=== PATIENT | female | born 1985 | race Caucasian/White ===

== ENCOUNTER 2017-04-19 15:42 | Emergency (ER) | payer OTHER ==
[2017-04-19 16:03] VITALS: BMI 30.1
--- NOTE | 2017-04-19 17:43 | PDOC ---
History of Present Illness - General History Source: Patient Exam Limitations: No Limitations - History of Present Illness Initial Comments: 04/19/17 18:02 32 y/o F (16 weeks) with a PMHx of hypothyroidism presents to the ED with facial swelling and abdominal pain for the past week. She reports difficulty eating due to the pain. She reports taking Tylenol and icing her face with no relief. Patient was traveling in [place] and noticed facial swelling. She went to the ER there and they gave her Keflex and it seemed to resolve a little. However, when she came back home she noticed facial swelling again, along with crampy abdominal pain so she spoke to her dentist and her OB/ Brim Greaser Operator. briquette maker: Dr. Copeland <Blaire Crain - Last Filed: 04/19/17 18:02> <Nichol Vigil - Last Filed: 04/19/17 20:43> <Elidia Beach - Last Filed: 04/19/17 20:53> - General Chief Complaint: Abscess Boil Stated Complaint: ABSCESS BOIL, 16 WKS Time Seen by Provider: 04/19/17 17:24 Past History <Blaire Crain - Last Filed: 04/19/17 18:02> <Nichol Vigil - Last Filed: 04/19/17 20:43> - Past Medical History Anemia: Yes Asthma: Yes (shortness of breath seasonally) Cancer: No Cardiac Disorders: No Diabetes: No HTN: No Liver Disease: No Seizures: Yes (epilepsy as a child) Thyroid Disease: Yes (hypothyroidism) - Surgical History Abdominal Surgery: Yes (LAP) Appendectomy: Yes Cardiac Surgery: Yes - Immunization History Immunization Up to Date: Yes - Suicide/Smoking/Psychosocial Hx Smoking Status: Yes Smoking History: Current every day smoker Have you smoked in the past 12 months: No Number of Cigarettes Smoked Daily: 7 If you are a former smoker, when did you quit?: 2013 Information on smoking cessation initiated: No Hx Alcohol Use: No Drug/Substance Use Hx: No Substance Use Type: None Hx Substance Use Treatment: No <Elidia Beach - Last Filed: 04/19/17 20:53> - Past Medical History Allergies/Adverse Reactions: Allergies Allergy/AdvReac Type Severity Reaction Status Date / Time No Known Allergies Allergy Verified 04/19/17 15:58 Home Medications: Ambulatory Orders Cholecalciferol (Vitamin D3) [Vitamin D3] 2,000 unit PO DAILY 12/26/15 Levothyroxine [Synthroid -] 275 mcg PO DAILY 01/19/16 Oxycodone HCl/Acetaminophen [Endocet 5-325 Tablet] 1 - 2 each PO BID PRN #100 tablet MDD 4 08/13/16 Pregabalin [Lyrica -] 150 mg PO BID #60 capsule MDD 2 08/13/16 Acetaminophen W/ Codeine #3 [Tylenol # 3 -] 1 tab PO Q6H #6 tablet MDD 4 tabs per day 04/19/17 Clindamycin [Cleocin -] 450 mg PO Q8H #90 capsule 04/19/17 Clotrimazole [Clotrimazole-7] 45 gm VG DAILY #7 cream.appl 04/19/17 Review of Systems - Review of Systems Comments:: 04/19/17 18:18 GENERAL/CONSTITUTIONAL: No fever or chills. No weakness. HEAD, EYES, EARS, NOSE AND THROAT: (+) facial swelling. No change in vision. No ear pain or discharge. No sore throat. CARDIOVASCULAR: No chest pain or shortness of breath. RESPIRATORY: No cough, wheezing, or hemoptysis. GASTROINTESTINAL: (+) abdominal pain. No nausea, vomiting, diarrhea or constipation. GENITOURINARY: No dysuria, frequency, or change in urination. MUSCULOSKELETAL: No joint or muscle swelling or pain. No neck or back pain. SKIN: No rash NEUROLOGIC: No headache, vertigo, loss of consciousness, or change in strength/ sensation. ENDOCRINE: No increased thirst. No abnormal weight change. HEMATOLOGIC/LYMPHATIC: No anemia, easy bleeding, or history of blood clots. ALLERGIC/IMMUNOLOGIC: No hives or skin allergy. <Blaire Crain - Last Filed: 04/19/17 18:02> *Physical Exam - Vital Signs Last Vital Signs Temp Pulse Resp BP Pulse Ox 98.4 F 101 H 16 122/80 96 04/19/17 15:58 04/19/17 15:58 04/19/17 15:58 04/19/17 15:58 04/19/17 15:58 <Blaire Crain - Last Filed: 04/19/17 18:02> - Vital Signs Last Vital Signs Temp Pulse Resp BP Pulse Ox 98.4 F 101 H 16 122/80 96 04/19/17 15:58 04/19/17 15:58 04/19/17 15:58 04/19/17 15:58 04/19/17 15:58 - Physical Exam Comments: 04/19/17 20:43 Pelvic Exam: +cheesy white discharge present. External genitalia normal without lesions. Vaginal vault is without blood . Cervix is long and closed. No cervical motion tenderness. Uterus is nontender and normal in size. Adnexa are nontender and without masses. <Nichol Vigil - Last Filed: 04/19/17 20:43> - Vital Signs Last Vital Signs Temp Pulse Resp BP Pulse Ox 98.4 F 101 H 16 122/80 96 04/19/17 15:58 04/19/17 15:58 04/19/17 15:58 04/19/17 15:58 04/19/17 15:58 <Elidia Beach - Last Filed: 04/19/17 20:53> ED Treatment Course - LABORATORY CBC & Chemistry Diagram: 04/19/17 19:25 04/19/17 19:25 - ADDITIONAL ORDERS Additional order review: Laboratory Results 04/19/17 04/19/17 19:25 19:25 Beta HCG, Quant [id number] Urine Color Yellow Urine Appearance Slcloudy Urine pH 5.0 Urine Protein Negative Urine Glucose (UA) Negative Urine Ketones Trace H Urine Blood Negative Urine Nitrite Negative Urine Bilirubin Negative Urine Urobilinogen Negative 04/19/17 19:25 RBC 4.45 MCV 91.4 MCHC 33.8 RDW 13.8 MPV 10.8 Neutrophils % 79.2 Lymphocytes % 15.1 D Monocytes % 3.9 Eosinophils % 1.3 D Basophils % 0.5 - Medications Given in the ED: ED Medications Discontinued Medications Generic Name Dose Route Start Last Admin Trade Name Freq PRN Reason Stop Dose Admin Acetaminophen 975 mg 04/19/17 17:44 04/19/17 19:27 Tylenol - PO 04/19/17 17:45 975 mg ONCE ONE Administration Sodium Chloride 1,000 ml 04/19/17 17:44 04/19/17 19:27 Normal Saline - IV 04/19/17 17:45 1,000 ml ONCE ONE Administration <Nichol Vigil - Last Filed: 04/19/17 20:43> - LABORATORY CBC & Chemistry Diagram: 04/19/17 19:25 04/19/17 19:25 <Elidia Beach - Last Filed: 04/19/17 20:53> Medical Decision Making - Medical Decision Making 04/19/17 19:29 32yo female with L lower jaw swelling and pelvic cramping -16 weeks , c/o vaginal discharge, no bleeding -will check labs, ivf hydration, pain control -will discuss with ENGINE TEST CELL TECHNICIAN - call placed to [facility] -pt with concern for tooth abscess, will give clindamycin -case discussed with Dr. Lopez - [facility] - who recommends pt come to walk in clinic tomorrow at 1pm at [facility] for further eval [phone] 04/19/17 19:[address] Steve who recommends tylenol #3 for pain <Elidia Beach - Last Filed: 04/19/17 20:53> *DC/Admit/Observation/Transfer - Attestations Scribe Attestion: 04/19/17 18:19 Documentation prepared by Blaire Crain, acting as medical dermatologist for Elidia Beach DO. <Blaire Crain - Last Filed: 04/19/17 18:02> - Attestations Scribe Attestion: 04/19/17 20:44 Documentation prepared by SUSIE Love, acting as medical dermatologist for Elidia Beach DO. <Nichol Vigil - Last Filed: 04/19/17 20:43> - Discharge Dispostion Admit: No - Attestations Physician Attestion: 04/19/17 20:53 I, Dr. Elidia Beach DO, attest that this document has been prepared under my direction and personally reviewed by me in its entirety. I further attest, that it accurately reflects all work, treatment, procedures and medical decision -making performed by me. <Elidia Beach - Last Filed: 04/19/17 20:53> Diagnosis at time of Disposition: Fracture of tooth, Dental abscess, Pelvic cramping, Vaginal candidiasis - Discharge Dispostion Disposition: HOME Condition at time of disposition: Stable - Prescriptions Prescriptions: Clindamycin [Cleocin -] 450 mg PO Q8H #90 capsule Clotrimazole [Clotrimazole-7] 45 gm VG DAILY #7 cream.appl Acetaminophen W/ Codeine #3 [Tylenol # 3 -] 1 tab PO Q6H #6 tablet MDD 4 tabs per day - Referrals Referrals: Marlene Martin MD [Primary Care Provider] - Aldair Copeland MD [Staff Physician] - - Patient Instructions Printed Discharge Instructions: DI for Tooth Abscess Additional Instructions: Please go to [facility] tomorrow at 1pm for the walk in clinic for the tooth infection. The phone number is [phone]. Please take all meds as prescribed. Please return to the ED with any further concerns.
[2017-04-19] MEDS ORDERED: SODIUM CHLORIDE 0.9% 1000 ML INFUS.BAG IV ONE (17:44)
[2017-04-19] MEDS ORDERED: ACETAMINOPHEN 325 MG TABLET (FP) PO ONE (17:44)
[2017-04-19] MEDS ORDERED: ACETAMINOPHEN 325 MG TABLET (FP) ONE (19:04)
[2017-04-19] MEDS ORDERED: ACETAMINOPHEN WITH CODEINE 300MG/30MG TABLET PO ONE (19:35)
[2017-04-19 19:46] LABS: BASOPHIL 0.5 % (0-2.0); EOSINOPHIL 1.3 % (0-4.5); MCH 30.9 pg (25.7-33.7); MCHC 33.8 g/dl (32.0-36.0); MEAN CELL VOLUME 91.4 fl (80-96); MEAN PLT VOLUME 10.8 fl (7.5-11.1); NEUTROPHILS 79.2 % (42.8-82.8); PLATELET COUNT 195 K/MM3 (134-434); RDW 13.8 % (11.6-15.6); WHITE BLOOD COUNT 15.6 K/mm3 (4.0-10.0)
[2017-04-19] MEDS ORDERED: ACETAMINOPHEN WITH CODEINE 300MG/30MG TABLET ONE (19:48)
[2017-04-19 20:06] LABS: URINE APPEARANCE SLCLOUDY; URINE BILIRUBIN NEGATIVE (NEGATIVE); URINE BLOOD NEGATIVE (NEGATIVE); URINE COLOR YELLOW; URINE GLUCOSE (UA) NEGATIVE (NEGATIVE); URINE KETONE TRACE (NEGATIVE); URINE LEUK ESTERASE NEGATIVE (NEGATIVE); URINE NITRITE NEGATIVE (NEGATIVE); URINE PROTEIN NEGATIVE (NEGATIVE); URINE UROBILINOGEN NEGATIVE mg/dL (0.2-1.0)
[2017-04-19 20:11] LABS: ALBUMIN 3.1 g/dl (3.4-5.0); ALK PHOS 106 U/L (45-117); ANION GAP 5 (8-16); BILIRUBIN,TOTAL 0.3 mg/dL (0.2-1.0); CALCIUM 8.9 mg/dL (8.5-10.1); CO2 26 mmol/L (21-32); CREATININE 0.4 mg/dL (0.55-1.02); GLUCOSE,RANDOM 70 mg/dL (74-106); SGOT/AST 12 U/L (15-37); SGPT/ALT 30 U/L (12-78); TOT PROT 7.1 g/dl (6.4-8.2)
[2017-04-19] MEDS ORDERED: CLINDAMYCIN HCL 150 MG CAPSULE (FP) PO ONE (20:31)
[2017-04-19 21:07] VITALS: BP 128/80; PULSE 75; TEMP 98
== END 2017-04-19 21:19 | disposition home or self-care (01) ==
LOC: JER 15:42
DX: O26.891 Other specified pregnancy related conditions, first trimester (principal); O98.812 Other maternal infectious and parasitic diseases complicating pregnancy, second trimester; B37.3 Candidiasis of vulva and vagina; K04.7 Periapical abscess without sinus; Z3A.16 16 weeks gestation of pregnancy; F17.210 Nicotine dependence, cigarettes, uncomplicated
CPT/HCPCS: 36415; 76815-TC; 80053; 81003; 84702; 85025; 99284-25

== ENCOUNTER 2017-05-03 15:24 | Emergency (ER) | payer OTHER ==
[2017-05-03 15:31] VITALS: TEMP 98.2; BMI 30.1
[2017-05-03 17:52] VITALS: BP 114/64; PULSE 71
== END 2017-05-03 16:00 | disposition home or self-care (01) ==
LOC: JER 15:24
DX: O26.892 Other specified pregnancy related conditions, second trimester (principal); Z3A.20 20 weeks gestation of pregnancy
CPT/HCPCS: 76815-TC; 99281-25

== ENCOUNTER 2017-06-28 14:55 | Emergency (ER) | payer OTHER ==
[2017-06-28 15:05] VITALS: TEMP 98.8; BMI 31.8
--- NOTE | 2017-06-28 15:05 | PDOC ---
Rapid Medical Evaluation Chief Complaint: Cold Symptoms Time Seen by Provider: 06/28/17 15:00 Medical Evaluation: Allergies Allergy/AdvReac Type Severity Reaction Status Date / Time No Known Allergies Allergy Verified 06/28/17 15:00 06/28/17 15:02 I have performed a brief in-person evaluation of this patient. The patient presents with a chief complaint of: 38 weeks w/ uri w/ pleuritic CP. H/o asthma. No sob or wheezing currently Pertinent physical exam findings:Stable I have ordered the following:ekg The patient will proceed to the ED for further evaluation. 06/28/17 15:05
[2017-06-28] MEDS ORDERED: AZITHROMYCIN 250 MG TABLET PO STA (16:31)
[2017-06-28] MEDS ORDERED: predniSONE 20 MG TABLET (UD) PO ONE (16:31)
--- NOTE | 2017-06-28 16:32 | PDOC ---
History of Present Illness - History of Present Illness Initial Comments: 06/28/17 16:49 The patient is a 32 year old (38wks) female, with a significant past medical history of asthma, who presents to the emergency department for chest pain, general malaise, and dry cough. Patient states that she has been experiencing cold symptoms such as nasal congestion and dry hacking cough. She states that her cough is so severe that it sometimes induces vomiting and it's worse at night when she lays down. She states she hasn't been eating or drinking as much because of her cough. Last night she states that she began experiencing chest pain that she describes as sharp, intermittent, and not typical of her asthma. The chest pain prompted her to see her PCP today. They referred her to the ER since the office was closing. She denies recent fevers, chills, headache or dizziness. She denies recent diarrhea or constipation. She denies recent dysuria, frequency, urgency or hematuria. She denies recent shortness of breath. Allergies: NKA Past surgical history: None reported. Social history: Former smoker Denies EtOH use and recreational drug use. Primary Care Physician: Dr. Marlene Troncoso <Rachell Pond - Last Filed: 06/28/17 16:49> <Dawn Barksdale - Last Filed: 06/29/17 00:38> - General Chief Complaint: Cold Symptoms Stated Complaint: CHEST PAIN (38 WEEKS ) Time Seen by Provider: 06/28/17 15:00 Past History <Rachell Pond - Last Filed: 06/28/17 16:49> - Past Medical History Anemia: Yes Asthma: Yes (shortness of breath seasonally) Cancer: No Cardiac Disorders: No COPD: No Diabetes: No HTN: No Liver Disease: No Seizures: Yes (epilepsy as a child) Thyroid Disease: Yes (hypothyroidism) - Surgical History Abdominal Surgery: Yes (LAP adhesions) Appendectomy: Yes Cardiac Surgery: Yes - Immunization History Immunization Up to Date: Yes - Suicide/Smoking/Psychosocial Hx Smoking Status: Yes Smoking History: Former smoker Have you smoked in the past 12 months: No Number of Cigarettes Smoked Daily: 7 If you are a former smoker, when did you quit?: 2013 Information on smoking cessation initiated: No Hx Alcohol Use: No Drug/Substance Use Hx: No Substance Use Type: None Hx Substance Use Treatment: No <Dawn Barksdale - Last Filed: 06/29/17 00:38> - Past Medical History Allergies/Adverse Reactions: Allergies Allergy/AdvReac Type Severity Reaction Status Date / Time No Known Allergies Allergy Verified 06/28/17 15:00 Home Medications: Ambulatory Orders NK [No Known Home Medication] 06/28/17 Review of Systems - Review of Systems Comments:: 06/28/17 16:49 CONSTITUTIONAL: Absent: fever, no chills, no fatigue EYES: Absent: visual changes ENT: Present: nasal congestion Absent: ear pain, no sore throat CARDIOVASCULAR: Present chest pain Absent: no palpitations RESPIRATORY: Present: cough Absent: no SOB GI: Present:vomiting due to dry hacking cough Absent: abdominal pain, no nausea, no constipation, no diarrhea GENITOURINARY: Absent: dysuria, no frequency, no hematuria MUSCULOSKELETAL: Absent: back pain, no arthralgia, no myalgia SKIN: Absent: rash NEURO: Absent: headache <Rachell Pond - Last Filed: 06/28/17 16:49> *Physical Exam - Vital Signs Last Vital Signs Temp Pulse Resp BP Pulse Ox 98.8 F 94 H 18 102/68 100 06/28/17 15:00 06/28/17 15:00 06/28/17 15:00 06/28/17 15:00 06/28/17 15:00 - Physical Exam Comments: 06/28/17 16:51 GENERAL: Well developed, well nourished. Awake and alert. No acute distress. HEENT: Rhinnorhea. Normocephalic, atraumatic. PERRLA, EOMI. No conjunctival pallor. Sclera are non-icteric. Moist mucous membranes. Oropharynx is clear. NECK: Supple. Full ROM. No JVD. Carotid pulses 2+ and symmetric, without bruits. No thyromegaly. No lymphadenopathy. CARDIOVASCULAR: Regular rate and rhythm. No murmurs, rubs, or gallops. Distal pulses are 2+ and symmetric. PULMONARY: Bronchitic cough. No wheezing. Lungs clear to auscultation bilaterally. No rales or rhonchi. ABDOMINAL: Soft, protuberant. Non-tender. Non-distended. No rebound or guarding. No organomegaly. Normoactive bowel sounds. MUSCULOSKELETAL Normal range of motion at all joints. No bony deformities or tenderness. No CVA tenderness. EXTREMITIES: No cyanosis. No clubbing. No edema. No calf tenderness. SKIN: Warm and dry. Normal capillary refill. No rashes. No jaundice. NEUROLOGICAL: Alert, awake, appropriate. Cranial nerves 2-12 intact. No deficits to light touch and temperature in face, upper extremities and lower extremities. No motor deficits in the in face, upper extremities and lower extremities. Normoreflexic in the upper and lower extremities. Normal speech. Toes are down-going bilaterally. Gait is normal without ataxia. PSYCHIATRIC: Cooperative. Good eye contact. Appropriate mood and affect. <Rachell Pond - Last Filed: 06/28/17 16:49> - Vital Signs Last Vital Signs Temp Pulse Resp BP Pulse Ox 98.8 F 94 H 18 102/68 100 06/28/17 15:00 06/28/17 15:00 06/28/17 15:00 06/28/17 15:00 06/28/17 15:00 <Dawn Barksdale - Last Filed: 06/29/17 00:38> ED Treatment Course - Medications Given in the ED: ED Medications Discontinued Medications Generic Name Dose Route Start Last Admin Trade Name Freq PRN Reason Stop Dose Admin Azithromycin 500 mg 06/28/17 16:31 06/28/17 16:38 Zithromax - PO 06/28/17 16:32 500 mg ONCE STA Administration Prednisone 60 mg 06/28/17 16:31 06/28/17 16:38 Deltasone - PO 06/28/17 16:32 60 mg ONCE ONE Administration <Rachell Pond - Last Filed: 06/28/17 16:49> Medical Decision Making - Medical Decision Making 06/29/17 00:35 32 yo female who is 38 weeks p/w URI symptoms, afebrile,no resp distress,pt is breathing comfortably -she denied any pelvic cramping or vaginal bleeding and did not want to go to [facility] monitoring -she had a dry hacking cough that was keeping her awake at night lungs cta b/l -significant nasal congestion IMP UTI,bronchitis <Dawn Barksdale - Last Filed: 06/29/17 00:38> *DC/Admit/Observation/Transfer - Attestations Scribe Attestion: 06/28/17 16:53 Documentation prepared by Rachell Pond, acting as medical physicist for Dawn Barksdale MD. <Rachell Pond - Last Filed: 06/28/17 16:49> <Dawn Barksdale - Last Filed: 06/29/17 00:38> Diagnosis at time of Disposition: Bronchitis, Third trimester - Discharge Dispostion Disposition: HOME Condition at time of disposition: Stable - Referrals Referrals: Laverne Murray [Non Staff, Medical] - - Patient Instructions Printed Discharge Instructions: DI for Acute Bronchitis Additional Instructions: please continue your care Your prescriptions were sent to [facility] at [address] [place] [address]
[2017-06-28] MEDS ORDERED: AZITHROMYCIN 250 MG TABLET ONE (16:33)
[2017-06-28] MEDS ORDERED: predniSONE 20 MG TABLET (UD) ONE (16:33)
[2017-06-28 17:01] VITALS: BP 110/72; PULSE 89
--- NOTE | 2017-06-29 08:25 | EKG ---
Test Reason : Blood Pressure : / mmHG Vent. Rate : 087 BPM Atrial Rate : 087 BPM P-R Int : 140 ms QRS Dur : 084 ms QT Int : 384 ms P-R-T Axes : -04 017 -06 degrees QTc Int : 462 ms NORMAL SINUS RHYTHM NONSPECIFIC T WAVE ABNORMALITY PROLONGED QT ABNORMAL ECG NO PREVIOUS ECGS AVAILABLE Confirmed by MD Lam Daniel ([id number]) on 06/28/2017 4:47:07 PM Also confirmed by MD Lam Daniel ([id number]), photographic editor ARASH LEMA ([id number]) on 06/29/2017 8:25:02 AM Referred By: Confirmed By:Arash Lam MD
== END 2017-06-28 17:02 | disposition home or self-care (01) ==
LOC: JER 14:55
DX: O26.893 Other specified pregnancy related conditions, third trimester (principal); J40 Bronchitis, not specified as acute or chronic
CPT/HCPCS: 93005; 93010; 99283-25

== ENCOUNTER 2017-07-01 11:37 | Inpatient (IN) | payer OTHER ==
[2017-07-01 11:57] VITALS: BMI 31.8
--- NOTE | 2017-07-01 13:59 | PDOC ---
Attending Attestation - Resident Resident Name: Ced Cast - HPI HPI: 07/02/17 09:30 Pt presents to the ED complaining of persistent wheezing and shortness of breath. PAtient is 30 weeks and was seen in the ED for the same complaint last week and discharged with albuterol q 2 hours, prednisone and zithromax. SHe has been taking these medications without improvement. States that she had fevers last week but denies fevers now. - Physicial Exam PE: 07/02/17 09:32 Agree with resident exam. Patient is speaking in 3-4 word sentences and is mildly tachypneic. + wheezing in the bases with decreased air movement. - Medical Decision Making 07/02/17 09:38 Pt presents to the ED with wheezing and shortness of breath that have not improved despite agressive out patient treatment. No signs of preeclampsia or peripartum cardiomyopathy. CXR is negative for PNA. Symptoms are most consistent with persistent asthma, but given her lack of improvement as an outpatient, I feel that she would benefit from a short in patient stay.
--- NOTE | 2017-07-01 14:26 | PDOC ---
History of Present Illness - General Chief Complaint: Labor Assessment Stated Complaint: SOB (30 WKS ) Time Seen by Provider: 07/01/17 13:39 - History of Present Illness Initial Comments: 07/01/17 14:23 32 yo F at 30 wga with h/o hypothryoidism who presents with SOB, and cough. Dry worsening yellow/white suputum productive cough one week. Endorses 3 days of stabbing, sharp left lateral chest pain, worse with deep inhalation, coughing. 3 days ago fevers/chills subjectively ( now resolved).Pain persists despite treatment with duonebs, steroids, and azithromycin. Denies any other complaints. Denies N/V, urinary complaints, abdominal pain, diarrhea, swelling of exts, lightheadedness, weakness, LOC, vertigo. Recently seen in ED 06/28/17 and prescribed Zithromax and Prednsione taper for acute bronchitis. Now on 20 mg PO. Smokes tobacco 1/4 ppd for 6 years, but not during this .Denies illicit drug use. Denies h/o DVT/PE, recent surgery, trauma, hemoptysis. Dr. Rowley Quality Control Inspector Heading. Does not recall LMP. 09/08/2017 due date. Patient desires to have CXR. Past History - Past Medical History Allergies/Adverse Reactions: Allergies Allergy/AdvReac Type Severity Reaction Status Date / Time No Known Allergies Allergy Verified 07/01/17 11:57 Home Medications: Ambulatory Orders Levothyroxine [Synthroid -] 50 mcg PO DAILY 07/01/17 Levothyroxine [Synthroid -] 200 mcg PO DAILY 07/01/17 Vit Calc,Iron,Folic [ Vitamins] 1 tab PO DAILY 07/01/17 Anemia: Yes Asthma: Yes (shortness of breath seasonally) Cancer: No Cardiac Disorders: No COPD: No Diabetes: No HTN: No Liver Disease: No Seizures: Yes (epilepsy as a child) Thyroid Disease: Yes (hypothyroidism, HYPOPROLACTINANEMIA) - Surgical History Abdominal Surgery: Yes (LAP adhesions) Appendectomy: Yes Cardiac Surgery: Yes - Immunization History Immunization Up to Date: Yes - Suicide/Smoking/Psychosocial Hx Smoking Status: Yes Smoking History: Former smoker Have you smoked in the past 12 months: No Number of Cigarettes Smoked Daily: 7 If you are a former smoker, when did you quit?: 2013 Information on smoking cessation initiated: No Hx Alcohol Use: No Drug/Substance Use Hx: No Substance Use Type: None Hx Substance Use Treatment: No Review of Systems - Review of Systems Comments:: 07/01/17 15:28 GENERAL/CONSTITUTIONAL: No fever or chills. No weakness. HEAD, EYES, EARS, NOSE AND THROAT: No change in vision. No ear pain or discharge. No sore throat.- CARDIOVASCULAR: No chest pain or shortness of breath RESPIRATORY: + cough,and SOB. No wheezing, or hemoptysis. GASTROINTESTINAL: No nausea, vomiting, diarrhea or constipation. GENITOURINARY: No dysuria, frequency, or change in urination. MUSCULOSKELETAL: No joint or muscle swelling or pain. No neck or back pain. SKIN: No rash NEUROLOGIC: No headache, vertigo, loss of consciousness, or change in strength/ sensation. ENDOCRINE: No increased thirst. No abnormal weight change HEMATOLOGIC/LYMPHATIC: No anemia, easy bleeding, or history of blood clots. ALLERGIC/IMMUNOLOGIC: No hives or skin allergy. *Physical Exam - Vital Signs Last Vital Signs Temp Pulse Resp BP Pulse Ox 98.1 F 87 20 124/54 98 07/01/17 13:00 07/01/17 13:00 07/01/17 13:00 07/01/17 13:00 07/01/17 11:51 - Physical Exam Comments: 07/01/17 15:29 GENERAL: Awake, alert, and fully oriented, in no acute distress HEAD: No signs of trauma, normocephalic, atraumatic EYES: PERRLA, EOMI, sclera anicteric, conjunctiva clear ENT: Hearing grossly normal, nares patent, oropharynx clear without exudates. Moist mucosa NECK: Normal ROM, supple, no lymphadenopathy, JVD, or masses LUNGS: No distress, speaks full sentences, clear to auscultation bilaterally HEART: Regular rate and rhythm, normal S1 and S2, no murmurs, rubs or gallops, peripheral pulses normal and equal bilaterally. ABDOMEN: Soft, nontender, normoactive bowel sounds. No guarding, no rebound. No masses EXTREMITIES : Normal inspection, Normal range of motion, no edema. No clubbing or cyanosis. SKIN: Warm, Dry, normal turgor, no rashes or lesions noted. ED Treatment Course - LABORATORY CBC & Chemistry Diagram: 07/01/17 15:40 07/01/17 15:40 Medical Decision Making - Medical Decision Making 07/01/17 15:44 32 yo F at 30 wga with h/o hypothryoidism who presents with worsening yellow/white sputum productive cough x1 week and 3 day new onset stabbing, sharp left lateral chest pain, worse with deep inhalation, and coughing. Also endorses 3 days ago fevers/chills subjectively ( now resolved). Pain persists despite treatment with duonebs, steroids, and azithromycin. Recently seen in ED 06/28/17 and prescribed Zithromax and Prednsione taper for acute bronchitis. Now on 20 mg PO. Denies any other complaints. Denies N/V, urinary complaints, abdominal pain, diarrhea, swelling of exts, lightheadedness, weakness, LOC, vertigo. Physical exam benign and vitals wnl. Presentation most likely 2/2 viral bronchitis vs. asthma exacerbation vs. PNA. Low suspicion of PE. Perc Neg. PCP: Marlene Troncoso photocopy operator: [facility] ED Course: CBC, CMP, UA Duonebs Patient provides consent for CXR 07/01/17 16:34 CXR: Unremarkable WBC 16.1 CMP: Unremarkable UA: Neg 07/01/17 16:38 Breathing continues to be labored. States that duoneb treatment was ineffective. 07/01/17 16:44 Mg Sulfate 2 mg. 07/01/17 17:01 Mciroblogged admitting symphony. Need to admit to [facility] 07/01/17 17:14 07/01/17 17:20 Will admit to [facility]. Spoke to DR. De Los Santos and they will follow this patient under Dr. Copeland service. *DC/Admit/Observation/Transfer Diagnosis at time of Disposition: Asthma affecting , antepartum - Discharge Dispostion Admit: Yes - Referrals Referrals: Aldair Copeland MD [Staff Physician] - Marlene Martin MD [Primary Care Provider] - - Patient Instructions Additional Instructions: discharge pt to emergency room maintain appointments come to hospital if you have contractions,vaginal bleeding,if your water breaks or if you do not feel the baby moving - Post Discharge Activity
[2017-07-01] MEDS ORDERED: ALBUTEROL SO4 2.5/IPRATROPIUM 0.5 INH SOL 3 ML VIAL.NEB. NEB ONE ×3 (15:39→18:59)
[2017-07-01] MEDS: ALBUTEROL SO4 2.5/IPRATROPIUM 0.5 INH SOL 3 ML VIAL.NEB. NEB SCH ×3 (15:45→18:58)
[2017-07-01 15:47] LABS: MCH 30.7 pg (25.7-33.7); MEAN CELL VOLUME 90.2 fl (80-96); MEAN PLT VOLUME 9.9 fl (7.5-11.1); PLATELET COUNT 185 K/MM3 (134-434); RDW 14.4 % (11.6-15.6); WHITE BLOOD COUNT 16.1 K/mm3 (4.0-10.0)
[2017-07-01 16:02] LABS: URINE APPEARANCE CLOUDY; URINE BILIRUBIN NEGATIVE (NEGATIVE); URINE BLOOD NEGATIVE (NEGATIVE); URINE COLOR YELLOW; URINE GLUCOSE (UA) NEGATIVE (NEGATIVE); URINE KETONE NEGATIVE (NEGATIVE); URINE LEUK ESTERASE NEGATIVE (NEGATIVE); URINE NITRITE NEGATIVE (NEGATIVE); URINE PROTEIN NEGATIVE (NEGATIVE); URINE UROBILINOGEN NEGATIVE mg/dL (0.2-1.0)
[2017-07-01 16:03] LABS: ALBUMIN 2.7 g/dl (3.4-5.0); ANION GAP 9 (8-16); BILIRUBIN,TOTAL 0.2 mg/dL (0.2-1.0); CALCIUM 8.6 mg/dL (8.5-10.1); CO2 27 mmol/L (21-32); CREATININE 0.5 mg/dL (0.55-1.02); GLUCOSE,RANDOM 75 mg/dL (74-106); SGOT/AST 15 U/L (15-37); SGPT/ALT 56 U/L (12-78)
[2017-07-01 16:04] LABS: ALK PHOS 93 U/L (45-117)
[2017-07-01] MEDS ORDERED: MAGNESIUM SULF 50% (8.12 MEQ/2 ML-1 GM VIAL) IVPB ONE (16:44)
[2017-07-01] MEDS ORDERED: MAGNESIUM SULF 50% (8.12 MEQ/2 ML-1 GM VIAL) ONE (17:07)
[2017-07-01 17:18] LABS: REACTIVE LYMPHOCYTES 1 % (0-80); TOTAL CELLS COUNTED 100
[2017-07-01 17:19] LABS: PLATELET ESTIMATE ADEQUATE
[2017-07-01] MEDS ORDERED: ACETAMINOPHEN 1000 MG/100 ML VIAL (NON FORMULARY) IVPB ONE (17:31)
[2017-07-01] MEDS ORDERED: ACETAMINOPHEN INJECTION 100 ML IVPB ONE (17:59)
[2017-07-01 18:48] LABS: URINE LEUK ESTERASE Negative (NEGATIVE)
[2017-07-01] MEDS ORDERED: ACETAMINOPHEN 325 MG TABLET (FP) PO PRN (20:05)
[2017-07-01] MEDS ORDERED: TUBERCULIN PPD 5 TU/0.1ML SYRINGE (IN PATIENT USE ONLY) ID ONE (20:15)
[2017-07-01] MEDS ORDERED: ALBUTEROL SO4 0.083% IH SOL 2.5 MG/3 ML VIAL.NEB. NEB PRN ×2 (21:04→21:24)
--- NOTE | 2017-07-01 21:04 | CONSULT ---
Consultation: REQUESTING PROVIDER: Dr. Copeland CONSULT REQUEST: We have been asked to medically evaluate this patient for Asthma Exacerbation. HISTORY OF PRESENT ILLNESS: Patient is a 32 year old currently 30 weeks female with a PMHx of Hypothyroidism and Asthma who presented today for worsening dry cough and shortness of breath. Patient states she was diagnosed with Bronchitis a week ago and was placed a Z-Pack and steroids since then. She reports taking 4 albuterol nebulizer treatments at home today with no relief, which prompted this hospital visit. She also experiences sharp pain under the left breast that is reproducible and extremely painful every time she coughs associated with chest tightness. Patient reports she is unable to lay down and unable to walk without feeling short of breath. She also reports increasing wheezing and has frequently been using her albuterol inhaler 4-5 times a day without relief. Patient reports being hospitalized for asthma years ago but denies any history of intubations. Patient denies history of blood clots of family history of blood clots. Patient denies traveling for long period of time recently. Otherwise, patient denies hemoptysis, fever, chills, abdominal pain, dizziness, loss of consciousness, hematuria, dysuria, frequency. In the ED patient was given multiple rounds of Nebulizer x4 and Magnesium 2gm with no relief REVIEW OF SYSTEMS: CONSTITUTIONAL: Absent: fever, chills, diaphoresis, generalized weakness, malaise, loss of appetite, weight change HEENT: Absent: rhinorrhea, nasal congestion, throat pain, throat swelling, difficulty swallowing, mouth swelling, ear pain, eye pain, visual changes CARDIOVASCULAR: Absent: chest pain, syncope, palpitations, irregular heart rate, lightheadedness , peripheral edema RESPIRATORY: cough, shortness of breath, dyspnea with exertion, orthopnea, wheezing Absent: stridor, hemoptysis GASTROINTESTINAL: Absent: abdominal pain, abdominal distension, nausea, vomiting, diarrhea, constipation, melena, hematochezia GENITOURINARY: Absent: dysuria, frequency, urgency, hesitancy, hematuria, flank pain, genital pain MUSCULOSKELETAL: Absent: myalgia, arthralgia, joint swelling, back pain, neck pain SKIN: Absent: rash, itching, pallor HEMATOLOGIC/IMMUNOLOGIC: Absent: easy bleeding, easy bruising, lymphadenopathy, frequent infections ENDOCRINE: Absent: unexplained weight gain, unexplained weight loss, heat intolerance, cold intolerance NEUROLOGIC: Absent: headache, focal weakness or paresthesias, dizziness, unsteady gait, seizure, mental status changes, bladder or bowel incontinence PSYCHIATRIC: Absent: anxiety, depression, suicidal or homicidal ideation, hallucinations. PHYSICAL EXAMINATION Vital Signs - 24 hr 07/01/17 07/01/17 07/01/17 11:51 13:00 19:31 Temperature 98.1 F 98.1 F 98.1 F Pulse Rate 85 Pulse Rate [ 80 Apical] Pulse Rate [ 87 Left Brachial] Respiratory 20 20 18 Rate Blood Pressure 137/73 Blood Pressure 124/54 [Left Upper Arm ] Blood Pressure 127/68 [Right Arm] O2 Sat by Pulse 98 100 Oximetry (%) 07/01/17 20:50 Temperature Pulse Rate Pulse Rate [ Apical] Pulse Rate [ Left Brachial] Respiratory Rate Blood Pressure Blood Pressure [Left Upper Arm ] Blood Pressure [Right Arm] O2 Sat by Pulse 98 Oximetry (%) GENERAL: Awake, alert, and fully oriented, In moderate respiratory distress HEAD: Normal with no signs of trauma. EYES: Pupils equal, round and reactive to light, extraocular movements intact, sclera anicteric, conjunctiva clear. EARS, NOSE, THROAT: Oropharynx clear without exudates. Moist mucous membranes. NECK: Normal range of motion, supple without lymphadenopathy, JVD, or masses. LUNGS: Inspiratory and expiratory wheezing throughout lung bases with accessory muscle use HEART: Tachycardic with regular rhythm, normal S1 and S2 without murmur, rub or gallop. Tenderness upon palpitation of left chest and under the breasts. ABDOMEN: Soft, 30cm fundus, nontender, normoactive bowel sounds, no guarding, no rebound, no masses. MUSCULOSKELETAL: No CVA tenderness. UPPER EXTREMITIES: No peripheral edema. LOWER EXTREMITIES: Trace edema bilaterally NEUROLOGICAL: unable to assess due to patients medical condition. No facial droop PSYCHIATRIC: Anxious, Cooperative. Good eye contact. Appropriate mood and affect. SKIN: Warm, dry, normal turgor, no rashes or lesions noted. Laboratory Results - last 24 hr 07/01/17 07/01/17 07/01/17 15:40 15:40 15:50 WBC 16.1 H RBC 3.89 Hgb 11.9 D Hct 35.1 MCV 90.2 MCH 30.7 MCHC 34.0 RDW 14.4 Plt Count 185 MPV 9.9 Total Counted 100 Neutrophils % No Result Required. Neutrophils % (Manual) 73.0 Lymphocytes % No Result Required. Lymphocytes % (Manual) 21.0 Monocytes % (Manual) 4 Eosinophils % (Manual) 1.0 Differential Comment Man diff performed Platelet Estimate Adequate Platelet Comment Sodium 139 Potassium 4.2 Chloride 103 Carbon Dioxide 27 Anion Gap 9 BUN 5 L Creatinine 0.5 L D Creat Clearance w eGFR > 60 Random Glucose 75 Calcium 8.6 Total Bilirubin 0.2 D AST 15 D ALT 56 D Alkaline Phosphatase 93 Total Protein 6.0 L Albumin 2.7 L Urine Color Yellow Urine Appearance Cloudy Urine pH 6.0 Ur Specific [place] 1.008 Urine Protein Negative Urine Glucose (UA) Negative Urine Ketones Negative Urine Blood Negative Urine Nitrite Negative Urine Bilirubin Negative Urine Urobilinogen Negative Ur Leukocyte Esterase Negative Active Medications Generic Name Dose Route Start Last Admin Trade Name Freq PRN Reason Stop Dose Admin Acetaminophen 650 mg 07/01/17 20:05 Tylenol - PO Q6H PRN FEVER OR PAIN Albuterol/Ipratropium 1 amp 07/02/17 00:00 Duoneb - NEB QIDR [facility] Parenteral Electrolytes 1,000 mls @ 75 mls/hr 07/01/17 20:00 Plasma-Lyte 148 - IV ASDIR [facility] Levothyroxine Sodium 50 mcg 07/02/17 07:00 Synthroid - PO DAILY@0700 [facility] Multivit/Folic Acid/Iron 1 tab 07/02/17 10:00 Vitamins (Sjr) - PO DAILY [facility] ASSESSMENT/PLAN: Patient is a 32 year old female who presented with shortness of breath and found to be in acute asthma exacerbation. Acute Asthma Exacerbation -When examining patient she had audible wheezing with inspiratory and expiratory wheezing with accessory muscle use and moderate respiratory distress despite several rounds of albuterol and magnesium. -Transfer patient to ICU -Recommend Solu-medrol 60mg IV -Stat ABG -Recommend Antibiotics -Continuous Nebulizer and 02 -D-dimer ordered by ICU team which will likely be elevated due to patient being and in a hypercoaguable state, which may cause a PE or DVT, it is unlikely if patient responds to medical treatments. Would consider V/Q scan if patient does not improve -Spoke to Dr. Copeland who agree with plan. Patient will have her care resumed by ICU team and admitting physician Left Chest Pain -Pleuritic likelt secondary to constant cough. Pain is reproducible and worsened when actively coughing -Continue Acetaminophen for pain Leukocytosis -Likely secondary to Steroid use -Continue to monitor CBC Hypothyroidism -Continue Synthroid 20mcg Dispo: We will continue to follow the patient. Thank you for this consultative opportunity. <Mandi De Los Santos - Last Filed: 07/02/17 01:11> Consultation: Patient seen and examined with resident, case discussed and plans agreed on. Patient upgraded to ICU for close monitoring. <Shreya Ha - Last Filed: 07/02/17 07:29> Visit type - Emergency Visit Emergency Visit: Yes ED Registration Date: 07/01/17 Care time: The patient presented to the Emergency Department on the above date and was hospitalized for further evaluation of their emergent condition. - New Patient This patient is new to me today: Yes Date on this admission: 07/02/17 - Critical Care Critical Care patient: Yes Total Critical Care Time (in minutes): 35 Critical Care Statement: The care of this patient involved high complexity decision making to prevent further life threatening deterioration of the patient 's condition and/or to evaluate & treat vital organ system(s) failure or risk of failure. <Shreya Ha - Last Filed: 07/02/17 07:29>
[2017-07-01] MEDS ORDERED: methylPREDNISolone NA SUCC 40 MG/1 ML VIAL IVPUSH ONE (21:15)
[2017-07-01] MEDS ORDERED: IPRATROPIUM BR 0.02% 0.5 MG/2.5 ML VIAL.NEB. NEB PRN (21:25)
[2017-07-01] MEDS ORDERED: cefTRIAXone 1 GM/50 ML BAG (PRE-DOCKED) IVPB ONE (21:27)
[2017-07-01] MEDS ORDERED: methylPREDNISolone NA SUCC 125 MG/2 ML VIAL IVPUSH SCH (21:30)
[2017-07-01 21:32] LABS: ARTERIAL BLD GAS O2 SATURATION 99.3 % (90-98.9); ARTERIAL BLOOD GAS BASE EXCESS 0.7 meq/l (-2-2); ARTERIAL BLOOD GAS HCO3 23.8 meq/L (22-26); ARTERIAL BLOOD GAS pH 7.46 (7.35-7.45)
[2017-07-01 21:33] LABS: ALLENS TEST POSITIVE; ART PUNCT SITE RIGHT RADIAL; LPM/O2% 7 L; PT. ON O2? YES; TYPE OF O2 AEROSOL TX
[2017-07-01] MEDS ORDERED: CEFTRIAXONE 1 G/50 ML PREMIX 50 ML IVPB ONE (21:45)
--- NOTE | 2017-07-01 21:55 | CONSULT ---
Consult Consult Specialty:: Pulm/CCM Reason for Consultation:: Asthma Exacerbation - History of Present Illness Chief Complaint: Pleuritic pain, cough History of Present Illness: 32yow 30week with PMHx of Asthma (never been intubated, required prednisone treatment 3 times this year, last hospitalization ~4yrs ago), hypothyroidism who presents to ED with c/o SOB x5days, cough and Lt chest pleuretic pain. [employer] she was initially diagnosed with bronchitis and given Steroids 60mg with taper and Z-pac which she states that she completed. She was given Mag 2g, Duoneb and admitted to the floor. She was transferrred to ICU with persistent tachypnea, cough and pleuretic pain. In ICU VS BP 129/75, HR 100, RR 30, O2 sat 97% on 5L NC. Expiratory wheeze bilat. ABG 7.46, 34,170. Continued Albuterol nebs q1h, Solumedrol 60mg q6, tylenol IV for pain and cough suppressant. heart rate checked, normal at 150-160 - History Source History Provided By: Patient, Medical Record - Past Medical History Pulmonary: Yes: Asthma Endocrine: Yes: Hypothyroidism - Past Surgical History Past Surgical History: Yes: - Alcohol/Substance Use Hx Alcohol Use: No - Smoking History Smoking history: Former smoker Have you smoked in the past 12 months: No Aproximately how many cigarettes per day: 7 If you are a former smoker, when did you quit?: 2013 - Social History Usual Living Arrangement: With Spouse ADL: Independent History of Recent Travel: No Home Medications - Allergies Allergies/Adverse Reactions: Allergies Allergy/AdvReac Type Severity Reaction Status Date / Time No Known Allergies Allergy Verified 07/01/17 11:57 - Home Medications Home Medications: Ambulatory Orders Levothyroxine [Synthroid -] 50 mcg PO DAILY 07/01/17 Levothyroxine [Synthroid -] 200 mcg PO DAILY 07/01/17 Vit Calc,Iron,Folic [ Vitamins] 1 tab PO DAILY 07/01/17 Family Disease History - Family Disease History Family History: Unremarkable Family Disease History: Other: Mother Review of Systems - Review of Systems Constitutional: reports: Fever Eyes: reports: No Symptoms HENT: reports: Throat Pain Neck: reports: No Symptoms Cardiovascular: reports: No Symptoms Respiratory: reports: SOB, Other (pleuritic pain) Gastrointestinal: reports: No Symptoms Genitourinary: reports: No Symptoms Integumentary: reports: No Symptoms Neurological: reports: No Symptoms Endocrine: reports: No Symptoms Hematology/Lymphatic: reports: No Symptoms Psychiatric: reports: No Symptoms Physical Exam Vital Signs: Vital Signs Temperature 98.4 F 07/01/17 21:00 Pulse Rate 86 07/01/17 21:00 Respiratory Rate 18 07/01/17 21:00 Blood Pressure 134/51 07/01/17 21:00 O2 Sat by Pulse Oximetry (%) 98 07/01/17 20:50 Constitutional: Yes: Well Nourished, Anxious, Mild Distress Eyes: Yes: WNL, PERRL HENT: Yes: WNL, Normocephalic Neck: Yes: Supple, Trachea Midline Cardiovascular: Yes: Tachycardia, S1, S2 Respiratory: Yes: On Nasal O2, Wheezes Gastrointestinal: Yes: WNL, Other (30wks gestation) Renal/: Yes: WNL Extremities: Yes: WNL Edema: No Peripheral Pulses WNL: Yes Integumentary: Yes: WNL Neurological: Yes: Alert, Oriented ...Motor Strength: WNL Psychiatric: Yes: Alert, Oriented Labs: CBC, BMP 07/01/17 15:40 07/01/17 15:40 ABG Results ABG pH 7.46 (7.35-7.45) H 07/01/17 21:25 ABG pCO2 at Pt Temp 34.1 mmHg (35-45) L 07/01/17 21:25 ABG pO2 at Pt Temp 132.0 mmHg (80-100) H 07/01/17 21:25 ABG HCO3 23.8 meq/L (22-26) 07/01/17 21:25 ABG O2 Sat (Measured) 99.3 % (90-98.9) H 07/01/17 21:25 ABG O2 Content 16.0 % vol (15-22) 07/01/17 21:25 ABG Base Excess 0.7 meq/l (-2-2) 07/01/17 21:25 Current Medications Acetaminophen (Tylenol -) 650 mg PO Q6H PRN PRN Reason: FEVER OR PAIN Albuterol Sulfate (Ventolin 0.083% Nebulizer Soln -) 1 amp NEB Q1H PRN PRN Reason: SHORT OF BREATH/WHEEZING Budesonide (Pulmicort 0.25 Mg Nebulizer -) 1 amp NEB BID [facility] Parenteral Electrolytes (Plasma-Lyte 148 -) 1,000 mls @ 75 mls/hr IV ASDIR [facility] CEFTRIAXONE 1 G/50 ML PREMIX (Ceftriaxone 1 Gm-D5w Bag) 50 mls @ 100 mls/hr IVPB ONCE ONE Stop: 07/01/17 22:14 Ipratropium Slemp (Atrovent 0.02% Nebulizer -) 1 amp NEB Q6H PRN PRN Reason: WHEEZING Levothyroxine Sodium (Synthroid -) 50 mcg PO DAILY@0700 [facility] Methylprednisolone Sodium Succinate (Solu-Medrol -) 60 mg IVPUSH DAILY [facility] Multivit/Folic Acid/Iron ( Vitamins (Sjr) -) 1 tab PO DAILY [facility] Vital Signs Period Temp Pulse Resp BP Sys/Carney Pulse Ox Last 24 Hr 98.1 F-98.4 F 80-87 18-20 124-137/51-73 98-100 Imaging - Results Chest X-ray: Report Reviewed, Image Reviewed Assessment/Plan 32yow 30week with PMHx of Asthma now with status asthmaticus in setting of upper respiratory infection. Plan: -Peak flow assessment -Cont Albuterol q1h nebs -Atrovent nebs -Budesonide nebs -Continue Solumedrol 60mg q6 -Ceftriaxone 1g qd -ABG -Viral/Flu swab -Pain management with tylenol -Cough suppressant -BLE US -SAFETY FIRE BOSS consult for monitoring -DVT prophylaxis RACH Shaw CC time 35mins
--- NOTE | 2017-07-01 21:58 | CONSULT ---
Consultation: REQUESTING PROVIDER: CONSULT REQUEST: We have been asked to medically evaluate this patient for an asthma attack resistant to multiple rounds of nebs requiring ICU care. HISTORY OF PRESENT ILLNESS: Pt is a 32 year old F who is 30 wk with PMH asthma and hypothyroidsim. Pt presented to ED with SOB and cough following 1 week of cough productive of yellow sputum. Pt had several days of subjective fevers despite a Z pack and has had 3 d of pleuritic chest pain on the Left lower chest, sob, and cough despite nebs at home. In ED, pt received 4 rounds of nebs and 1 dose of Mg (which she states helped a little) prior to being admitted and subsequently transferred to ICU. At this time, pt is hemodynamically stable, alert, oriented, and in significant respiratory distress with accessory muscle use. O2 sat is 98%. REVIEW OF SYSTEMS: CONSTITUTIONAL: fever, Absent: chills, diaphoresis, generalized weakness, malaise, loss of appetite, weight change HEENT: rhinorrhea, nasal congestion, throat pain Absent: , throat swelling, difficulty swallowing, mouth swelling, ear pain, eye pain, visual changes CARDIOVASCULAR: chest pain Absent: , syncope, palpitations, irregular heart rate, lightheadedness, peripheral edema RESPIRATORY: cough, shortness of breath, wheezing Absent: , dyspnea with exertion, orthopnea, stridor, hemoptysis GASTROINTESTINAL: Absent: abdominal pain, abdominal distension, nausea, vomiting, diarrhea, constipation, melena, hematochezia GENITOURINARY: Absent: dysuria, frequency, urgency, hesitancy, hematuria, flank pain, genital pain MUSCULOSKELETAL: Absent: myalgia, arthralgia, joint swelling, back pain, neck pain SKIN: Absent: rash, itching, pallor HEMATOLOGIC/IMMUNOLOGIC: Absent: easy bleeding, easy bruising, lymphadenopathy, frequent infections ENDOCRINE: Absent: unexplained weight gain, unexplained weight loss, heat intolerance, cold intolerance NEUROLOGIC: Absent: headache, focal weakness or paresthesias, dizziness, unsteady gait, seizure, mental status changes, bladder or bowel incontinence PSYCHIATRIC: Absent: anxiety, depression, suicidal or homicidal ideation, hallucinations. PHYSICAL EXAMINATION Vital Signs - 24 hr 07/01/17 07/01/17 07/01/17 11:51 13:00 19:31 Temperature 98.1 F 98.1 F 98.1 F Pulse Rate 85 Pulse Rate [ 80 Apical] Pulse Rate [ 87 Left Brachial] Respiratory 20 20 18 Rate Blood Pressure 137/73 Blood Pressure 124/54 [Left Upper Arm ] Blood Pressure 127/68 [Right Arm] O2 Sat by Pulse 98 100 Oximetry (%) 07/01/17 07/01/17 20:50 21:00 Temperature 98.4 F Pulse Rate 86 Pulse Rate [ Apical] Pulse Rate [ Left Brachial] Respiratory 18 Rate Blood Pressure 134/51 Blood Pressure [Left Upper Arm ] Blood Pressure [Right Arm] O2 Sat by Pulse 98 Oximetry (%) GENERAL: Awake, alert, and fully oriented, in resp acute distress. Pt appears anxious. HEAD: Normal with no signs of trauma. EYES: Pupils equal, round and reactive to light, extraocular movements intact, sclera anicteric, conjunctiva clear. No lid lag. EARS, NOSE, THROAT: oropharynx clear without exudates. Moist mucous membranes. NECK: Normal range of motion, supple without lymphadenopathy, JVD, or masses. LUNGS: B/l wheezes, and no crackles. Accessory muscle use. HEART: Regular rate and rhythm, normal S1 and S2 without murmur, rub or gallop. ABDOMEN: . Soft. Tender to palpation with guarding in the LUQ. No organomegally appreciated. MUSCULOSKELETAL: Normal range of motion at all joints. No bony deformities or tenderness. No CVA tenderness. UPPER EXTREMITIES: 2+ pulses, warm, well-perfused. No cyanosis. No clubbing. Cap refill <2 seconds. No peripheral edema. LOWER EXTREMITIES: 2+ pulses, warm, well-perfused. No calf tenderness. No peripheral edema. NEUROLOGICAL: Cranial nerves II-XII intact. Normal speech. Normal gait. strength 5/5 throughout, sensation 5/5 throughout PSYCHIATRIC: Cooperative. Good eye contact. Appropriate mood and affect. SKIN: Warm, dry, normal turgor, no rashes or lesions noted. Laboratory Results - last 24 hr 07/01/17 07/01/17 07/01/17 15:40 15:40 15:50 WBC 16.1 H RBC 3.89 Hgb 11.9 D Hct 35.1 MCV 90.2 MCH 30.7 MCHC 34.0 RDW 14.4 Plt Count 185 MPV 9.9 Total Counted 100 Neutrophils % No Result Required. Neutrophils % (Manual) 73.0 Lymphocytes % No Result Required. Lymphocytes % (Manual) 21.0 Monocytes % (Manual) 4 Eosinophils % (Manual) 1.0 Differential Comment Man diff performed Platelet Estimate Adequate Platelet Comment Sodium 139 Potassium 4.2 Chloride 103 Carbon Dioxide 27 Anion Gap 9 BUN 5 L Creatinine 0.5 L D Creat Clearance w eGFR > 60 Random Glucose 75 Calcium 8.6 Total Bilirubin 0.2 D AST 15 D ALT 56 D Alkaline Phosphatase 93 Total Protein 6.0 L Albumin 2.7 L Urine Color Yellow Urine Appearance Cloudy Urine pH 6.0 Ur Specific [place] 1.008 Urine Protein Negative Urine Glucose (UA) Negative Urine Ketones Negative Urine Blood Negative Urine Nitrite Negative Urine Bilirubin Negative Urine Urobilinogen Negative Ur Leukocyte Esterase Negative Active Medications Generic Name Dose Route Start Last Admin Trade Name Freq PRN Reason Stop Dose Admin Acetaminophen 650 mg 07/01/17 20:05 Tylenol - PO Q6H PRN FEVER OR PAIN Albuterol Sulfate 1 amp 07/01/17 21:04 Ventolin 0.083% Nebulizer Soln - NEB Q4H PRN SHORT OF BREATH/WHEEZING Albuterol Sulfate 1 amp 07/01/17 21:24 Ventolin 0.083% Nebulizer Soln - NEB Q1H PRN SHORT OF BREATH/WHEEZING Budesonide 1 amp 07/01/17 22:00 Pulmicort 0.25 Mg Nebulizer - NEB BID [facility] Ceftriaxone Sodium 1 gm 07/01/17 21:27 Rocephin 1gm Ivpb (Pre-Docked) IVPB 07/01/17 21:28 ONCE ONE Protocol Parenteral Electrolytes 1,000 mls @ 75 mls/hr 07/01/17 20:00 Plasma-Lyte 148 - IV ASDIR [facility] Ipratropium [place] 1 amp 07/01/17 21:25 Atrovent 0.02% Nebulizer - NEB Q6H PRN WHEEZING Levothyroxine Sodium 50 mcg 07/02/17 07:00 Synthroid - PO DAILY@0700 [facility] Methylprednisolone Sodium Succinate 60 mg 07/01/17 21:30 Solu-Medrol - IVPUSH DAILY [facility] Multivit/Folic Acid/Iron 1 tab 07/02/17 10:00 Vitamins (Sjr) - PO DAILY [facility] ASSESSMENT/PLAN: Pt is a 32F with PMH asthma and hypothyroidsim who presented to ED with SOB and cough and was transferred to ICU with asthma exacerbation refractory to multiple rounds of nebs. Resp #Asthma exacerbation -pt got 4 nebs at home yest, 1 at home today, and 4 nebs in ED -pt continues to be in respiratory distress using accessory muscles -CXR in ED revealed no acute pathology -Leukocytosis of 16 -SoluMedrol 60 -Rocephin -Albuterol nebs q1h -Budesonide BID -Atrovent q4h #r/o DVT -D-dimer -LE duplex #Pleuritic CP -possibly due to resp distress vs vs PE -PE unlikely. D-dimer to r/o [employer]PER[employer]LLIERY -30 weeks -no known issues -Pt's OB, Dr. Copeland consulted FEN -not on fluids -lytes wnl -reg diet PPx -SCDs Dispo: Admitted to ICU for asthma exacerbation refractory to multiple rounds of nebs. We will continue to follow the patient. Thank you for this consultative opportunity. Chai Goodman MD PGY-1 ICU Visit type - Emergency Visit Emergency Visit: No - New Patient This patient is new to me today: Yes Date on this admission: 07/01/17 - Critical Care Critical Care patient: Yes Total Critical Care Time (in minutes): 35 Critical Care Statement: The care of this patient involved high complexity decision making to prevent further life threatening deterioration of the patient 's condition and/or to evaluate & treat vital organ system(s) failure or risk of failure.
[2017-07-01 22:13] LABS: BASOPHIL 0.3 % (0-2.0); EOSINOPHIL 0.9 % (0-4.5); MCH 31.3 pg (25.7-33.7); MCHC 35.2 g/dl (32.0-36.0); MEAN PLT VOLUME 9.7 fl (7.5-11.1); NEUTROPHILS 66.7 % (42.8-82.8); PLATELET COUNT 189 K/MM3 (134-434); WHITE BLOOD COUNT 14.9 K/mm3 (4.0-10.0)
[2017-07-01] MEDS ORDERED: ACETAMINOPHEN 1000 MG/100 ML VIAL (NON FORMULARY) IVPB PRN (22:22)
[2017-07-01 22:25] LABS: INR 0.96 (0.82-1.09); PROTHROMBIN TIME (PATIENT) 10.8 SEC (9.98-11.88)
[2017-07-01 22:28] LABS: ACTIVATED PTT 24.4 SECONDS (26.9-34.4)
[2017-07-01] MEDS ORDERED: guaiFENesin/D-METHORPHAN HB 10 ML UNIT-DOSE CUPS PO PRN (22:28)
--- NOTE | 2017-07-01 22:37 | HP ---
Past Medical History - Primary Care Physician PCP:: Aldair Copeland - Admission Chief Complaint: 30 weeks , cough , astham excerbation History of Present Illness: 32 yo f with previous c/s, hypothyroidism, asthma, c/o productive cough , yellow sputum , and dyspnia, pain with breathing, had low grade fever, txed with Zpack , did not help , seen in ER txed with nebulizer , MG, no improvement , admitted for management of asthma, no contraction, no bleeding, good fm History Source: Patient Limitations to Obtaining History: No Limitations - Past Medical History Pulmonary: Yes: Asthma ...: 6 ...Para: 4 ...Term: 4 ...: 0 ...Spon : 1 ...Induced : 0 ...LMP: 12/03/16 ... Weeks Gestation by Dates: 30.0 ...EDC by Dates: 09/09/17 ...EDC by Sono: 09/19/17 Heme/Onc: Yes: Anemia Endocrine: Yes: Hypothyroidism - Past Surgical History Past Surgical History: Yes: Hx Myomectomy: No Hx Transabdominal Cerclage: No - Smoking History Smoking history: Former smoker Have you smoked in the past 12 months: No Aproximately how many cigarettes per day: 7 If you are a former smoker, when did you quit?: 2013 - Alcohol/Substance Use Hx Alcohol Use: No History of Substance Use: reports: None - Social History ADL: Independent History of Recent Travel: No Home Medications - Allergies Allergies/Adverse Reactions: Allergies Allergy/AdvReac Type Severity Reaction Status Date / Time No Known Allergies Allergy Verified 07/01/17 11:57 - Home Medications Home Medications: Ambulatory Orders Levothyroxine [Synthroid -] 50 mcg PO DAILY 07/01/17 Levothyroxine [Synthroid -] 200 mcg PO DAILY 07/01/17 Vit Calc,Iron,Folic [ Vitamins] 1 tab PO DAILY 07/01/17 Family Disease History - Family Disease History Family Disease History: Other: Mother Review of Systems - Review of Systems Constitutional: reports: Weakness Eyes: reports: No Symptoms HENT: reports: No Symptoms Neck: reports: No Symptoms Cardiovascular: reports: Chest Pain, Shortness of Breath Respiratory: reports: Cough, Wheezing Gastrointestinal: reports: No Symptoms Genitourinary: reports: No Symptoms Breasts: reports: No Symptoms Reported Musculoskeletal: reports: No Symptoms Integumentary: reports: No Symptoms Neurological: reports: No Symptoms Endocrine: reports: No Symptoms Hematology/Lymphatic: reports: No Symptoms Psychiatric: reports: No Symptoms Physical Exam - Maternity Vital Signs: Vital Signs Temperature 98.4 F 07/01/17 21:00 Pulse Rate 86 07/01/17 21:00 Respiratory Rate 18 07/01/17 21:00 Blood Pressure 134/51 07/01/17 21:00 O2 Sat by Pulse Oximetry (%) 98 07/01/17 20:50 Constitutional: Yes: Well Nourished, No Distress, Anxious Eyes: Yes: WNL, Conjunctiva Clear, EOM Intact HENT: Yes: WNL, Atraumatic, Normocephalic Neck: Yes: WNL, Supple, Trachea Midline Cardiovascular: Yes: WNL, Regular Rate and Rhythm Lungs: Normal air movement Breast(s): Yes: WNL - Abdominal Exam/OB Fundal Height: 30 Number of Fetuses: Single Presentation: Vertex Contractions: No Intensity: Unaware Monitor Mode: External Heart Rate Location: [facility] Category: I Accelerations: Uniform Decelerations: None - Vaginal Exam/OB Vaginal Bleediing: No Dilatation (cm): closed Effacement (%): 0 Amniotic Membrane Status: Intact Presentation: Vertex/Position - Physical Exam Edema: Yes Edema: LLE: Trace, RLE: Trace Deep Tendon Reflex Grade: Normal +2 Psychiatric: Yes: WNL - Labs Lab Results: CBC, BMP 07/01/17 21:45 Hemorrhage Risk Assessment - Risk Factors Medium Risk Factors: Yes: Multiple gestation Risk Score: 1 Risk Level: Medium Risk Problem List - Problems (1) 30 weeks gestation of Code(s): Z3A.30 - 30 WEEKS GESTATION OF (2) Asthma affecting , antepartum Code(s): O99.519 - DISEASES OF THE RESP SYS COMP , UNSP TRIMESTER; J45.909 - UNSPECIFIED ASTHMA, UNCOMPLICATED (3) Hypothyroidism affecting Code(s): O99.280 - ENDO, NUTRITIONAL AND METAB DISEASES COMP PREG, UNSP TRI; E03.9 - HYPOTHYROIDISM, UNSPECIFIED Qualifiers: Trimester: third trimester Qualified Code(s): O99.283 - Endocrine, nutritional and metabolic diseases complicating , third trimester; E03.9 - Hypothyroidism, unspecified; E03.9 - Hypothyroidism, unspecified; E03.9 - Hypothyroidism, unspecified Assessment/Plan plan admit, pulmonary consult , o2, nst daily
[2017-07-01 22:45] LABS: ANION GAP 8 (8-16); CALCIUM 7.3 mg/dL (8.5-10.1); CO2 25 mmol/L (21-32); CREATININE 0.6 mg/dL (0.55-1.02); GLUCOSE,RANDOM 92 mg/dL (74-106)
[2017-07-01] MEDS ORDERED: HYDROmorphone HCL CARPU-JECT 2 MG/1 ML DISP.SYRIN ONE (23:36)
[2017-07-01] MEDS: HYDROmorphone HCL CARPU-JECT 2 MG/1 ML DISP.SYRIN IVPUSH PRN (23:37)
[2017-07-01] MEDS: ELECTROLYTE-148 SOLN 1,000 ML IV SCH (23:39)
[2017-07-01] MEDS: BUDESONIDE 0.25 MG/2ML INH SUSP VIAL NEB SCH (23:40)
[2017-07-02] MEDS ORDERED: ONDANSETRON 4 MG/2 ML VIAL IVPUSH PRN ×2 (00:55→13:25)
[2017-07-02] MEDS: HYDROmorphone HCL CARPU-JECT 2 MG/1 ML DISP.SYRIN IVPUSH PRN ×3 (03:56→19:15)
[2017-07-02] MEDS: methylPREDNISolone NA SUCC 125 MG/2 ML VIAL IVPUSH SCH ×2 (03:58→08:53)
[2017-07-02] MEDS ORDERED: LEVOTHYROXINE NA 50 MCG TABLET (FP) PO SCH (07:00)
[2017-07-02] MEDS: BUDESONIDE 0.25 MG/2ML INH SUSP VIAL NEB SCH ×2 (09:32)
[2017-07-02] MEDS ORDERED: PRENATAL VITAMINS W/ FOLIC ACID TABLET (FP) PO SCH (10:00)
[2017-07-02] MEDS ORDERED: ALBUTEROL SO4 0.083% IH SOL 2.5 MG/3 ML VIAL.NEB. NEB PRN ×2 (10:40→13:25)
--- NOTE | 2017-07-02 10:40 | PN ---
Progress Note (short form) - Note Progress Note: PULMONARY/CCM Pt seen and examined in the ICU. Breathing slightly improved from yesterday. Peak flow this AM 240. +rib/chest pain with movements and coughing. Last Vital Signs Temp Pulse Resp BP Pulse Ox 97.6 F 92 H 24 120/66 100 07/02/17 10:00 07/02/17 08:00 07/02/17 08:00 07/02/17 08:00 07/01/17 22:00 Intake & Output 06/29/17 06/30/17 07/01/17 07/02/17 23:59 23:59 23:59 23:59 Intake Total 100 900 Output Total 1600 Balance 100 -700 Weight 180 lb Gen: anxious, mildly tachypneic at rest Heart: RRR Lung: scattered wheezes, good air entry Abd: soft, nontender Ext: no edema CBC, BMP 07/01/17 21:45 07/01/17 21:45 Active Medications Acetaminophen (Ofirmev Injection -) 1,000 mg IVPB Q6H PRN PRN Reason: FEVER OR PAIN Last Admin: 07/02/17 08:52 Dose: 1,000 mg Albuterol Sulfate (Ventolin 0.083% Nebulizer Soln -) 1 amp NEB Q1H PRN PRN Reason: SHORT OF BREATH/WHEEZING Last Admin: 07/02/17 04:15 Dose: 1 amp Budesonide (Pulmicort 0.25 Mg Nebulizer -) 1 amp NEB BID MAGDA Last Admin: 07/02/17 09:32 Dose: 1 amp Guaifenesin (Robitussin Dm -) 10 ml PO Q6H PRN PRN Reason: COUGH Last Admin: 07/01/17 23:35 Dose: 10 ml Hydromorphone HCl (Dilaudid Injection -) 0.2 mg IVPUSH Q4H PRN PRN Reason: PAIN Last Admin: 07/02/17 08:53 Dose: 0.2 mg Parenteral Electrolytes (Plasma-Lyte 148 -) 1,000 mls @ 75 mls/hr IV ASDIR MAGDA Last Admin: 07/01/17 23:39 Dose: 75 mls/hr Ipratropium [place] (Atrovent 0.02% Nebulizer -) 1 amp NEB Q6H PRN PRN Reason: WHEEZING Last Admin: 07/02/17 06:45 Dose: 1 amp Levothyroxine Sodium (Synthroid -) 50 mcg PO DAILY@0700 MAGDA Methylprednisolone Sodium Succinate (Solu-Medrol -) 60 mg IVPUSH Q6H-IV MAGDA Last Admin: 07/02/17 08:53 Dose: 60 mg Ondansetron HCl (Zofran Injection) 4 mg IVPUSH Q6H PRN PRN Reason: NAUSEA AND/OR VOMITING Last Admin: 07/02/17 01:51 Dose: 4 mg Multivit/Folic Acid/Iron ( Vitamins (Sjr) -) 1 tab PO DAILY MAGDA A/P Acute Asthma Exacerbation URI 30 week - continue medrol at current dose - inhaled bronchodilators standing and PRN - O2 to keep SpO2 >90% - pain control - f/u LE dopplers - DVT prophylaxis - can monitor on floor
[2017-07-02] MEDS ORDERED: PANTOPRAZOLE 40 MG TABLET (FP) PO SCH (11:15)
[2017-07-02] MEDS ORDERED: ALBUTEROL SO4 2.5/IPRATROPIUM 0.5 INH SOL 3 ML VIAL.NEB. NEB SCH ×3 (12:00→18:00)
[2017-07-02] MEDS: ELECTROLYTE-148 SOLN 1,000 ML IV SCH (13:15)
[2017-07-02] MEDS ORDERED: ACETAMINOPHEN 1000 MG/100 ML VIAL (NON FORMULARY) IVPB PRN (13:25)
[2017-07-02] MEDS ORDERED: HYDROmorphone HCL CARPU-JECT 2 MG/1 ML DISP.SYRIN IVPUSH PRN (13:25)
[2017-07-02] MEDS ORDERED: ELECTROLYTE-148 SOLN 1,000 ML IV SCH (13:25)
[2017-07-02] MEDS ORDERED: guaiFENesin/D-METHORPHAN HB 10 ML UNIT-DOSE CUPS PO PRN (13:25)
--- NOTE | 2017-07-02 13:46 | PN ---
Teaching Attending Note Name of Resident: . Time of evaluation: 9:15 AM SUBJECTIVE: patient seen and examined, tachypneic, but able to speak in full sentences. Anxious. Breathing improving slowly. Left lower ribcage pain, reports more with cough and tender to touch. No vaginal discharge or bleed noted currently. OBJECTIVE: Vital Signs Period Temp Pulse Resp BP Sys/Carney Pulse Ox Last 24 Hr 97.6 F-98.4 F 78-115 18-26 119-134/51-82 96-100 Intake & Output 06/29/17 06/30/17 07/01/17 07/02/17 23:59 23:59 23:59 23:59 Intake Total 100 900 Output Total 1600 Balance 100 -700 Weight 180 lb 184 lb 12.8 oz General: tachypneic in bed, anxious, use of acessory muscles of breathing but able to speak in full sentences CVS: S1s2 tachycardic, regular rhythm Chest: decreased air entry bilaterally but able to appreciate, no rales or wheezing noted currently LL ribcage chest wall tenderness, no swelling or edema noted Abdomen: soft distended, positive bowel sounds Extremities: no edema Home Medication List Medication Instructions Recorded Confirmed Type Levothyroxine [Synthroid -] 50 mcg PO DAILY 07/01/17 07/01/17 History Levothyroxine [Synthroid -] 200 mcg PO DAILY 07/01/17 07/01/17 History Vit Calc,Iron,Folic 1 tab PO DAILY 07/01/17 07/01/17 History [ Vitamins] Active Medications Generic Name Dose Route Start Last Admin Trade Name Freq PRN Reason Stop Dose Admin Acetaminophen 1,000 mg 07/02/17 13:25 Ofirmev Injection - IVPB Q6H PRN FEVER OR PAIN Albuterol Sulfate 1 amp 07/02/17 13:25 Ventolin 0.083% Nebulizer Soln - NEB Q2H PRN SHORT OF BREATH/WHEEZING Albuterol/Ipratropium 1 amp 07/02/17 18:00 Duoneb - NEB QIDR MAGDA Budesonide 1 amp 07/02/17 22:00 Pulmicort 0.25 Mg Nebulizer - NEB BID MAGDA Guaifenesin 10 ml 07/02/17 13:25 Robitussin Dm - PO Q6H PRN COUGH Hydromorphone HCl 0.2 mg 07/02/17 13:25 Dilaudid Injection - IVPUSH Q4H PRN PAIN Parenteral Electrolytes 1,000 mls @ 75 mls/hr 07/02/17 13:25 Plasma-Lyte 148 - IV ASDIR MAGDA Levothyroxine Sodium 50 mcg 07/03/17 07:00 Synthroid - PO DAILY@0700 MAGDA Methylprednisolone Sodium Succinate 60 mg 07/02/17 15:00 Solu-Medrol - IVPUSH Q6H-IV MAGDA Ondansetron HCl 4 mg 07/02/17 13:25 Zofran Injection IVPUSH Q6H PRN NAUSEA AND/OR VOMITING Pantoprazole Sodium 40 mg 07/03/17 10:00 Protonix - PO DAILY [facility] Multivit/Folic Acid/Iron 1 tab 07/03/17 10:00 Vitamins (Sjr) - PO DAILY [facility] Tuberculin PPD 5 tu 07/02/17 14:00 Tubersol Intermediate Strength ID 07/02/17 14:01 ONCE ONE Laboratory Results - last 24 hr 07/01/17 07/01/17 07/01/17 15:40 15:40 15:50 WBC 16.1 H RBC 3.89 Hgb 11.9 D Hct 35.1 MCV 90.2 MCH 30.7 MCHC 34.0 RDW 14.4 Plt Count 185 MPV 9.9 Total Counted 100 Neutrophils % No Result Required. Neutrophils % (Manual) 73.0 Lymphocytes % No Result Required. Lymphocytes % (Manual) 21.0 Monocytes % Monocytes % (Manual) 4 Eosinophils % Eosinophils % (Manual) 1.0 Basophils % Differential Comment Man diff performed Platelet Estimate Adequate Platelet Comment PT with INR INR PTT (Actin FS) D-Dimer Anticoagulation Therapy Puncture Site ABG pH ABG pCO2 at Pt Temp ABG pO2 at Pt Temp ABG HCO3 ABG O2 Sat (Measured) ABG O2 Content ABG Base Excess Remberto Test O2 Delivery Device Oxygen Flow Rate Vent Mode Vent Rate Mechanical Rate Pressure Support Vent Sodium 139 Potassium 4.2 Chloride 103 Carbon Dioxide 27 Anion Gap 9 BUN 5 L Creatinine 0.5 L D Creat Clearance w eGFR > 60 Random Glucose 75 Calcium 8.6 Total Bilirubin 0.2 D AST 15 D ALT 56 D Alkaline Phosphatase 93 Total Protein 6.0 L Albumin 2.7 L Urine Color Yellow Urine Appearance Cloudy Urine pH 6.0 Ur Specific [place] 1.008 Urine Protein Negative Urine Glucose (UA) Negative Urine Ketones Negative Urine Blood Negative Urine Nitrite Negative Urine Bilirubin Negative Urine Urobilinogen Negative Ur Leukocyte Esterase Negative RPR Titer Blood Type Antibody Screen 07/01/17 07/01/17 07/01/17 21:25 21:45 21:45 WBC 14.9 H RBC 3.55 L Hgb 11.1 Hct 31.6 L MCV 89.0 MCH 31.3 MCHC 35.2 RDW 14.0 Plt Count 189 MPV 9.7 Total Counted Neutrophils % 66.7 Neutrophils % (Manual) Lymphocytes % 26.3 D Lymphocytes % (Manual) Monocytes % 5.8 Monocytes % (Manual) Eosinophils % 0.9 Eosinophils % (Manual) Basophils % 0.3 Differential Comment Platelet Estimate Platelet Comment PT with INR 10.80 INR 0.96 PTT (Actin FS) 24.4 L D-Dimer Anticoagulation Therapy Y Puncture Site Right radial ABG pH 7.46 H ABG pCO2 at Pt Temp 34.1 L ABG pO2 at Pt Temp 132.0 H ABG HCO3 23.8 ABG O2 Sat (Measured) 99.3 H ABG O2 Content 16.0 ABG Base Excess 0.7 Remberto Test Positive O2 Delivery Device Aerosol tx Oxygen Flow Rate 7 l Vent Mode Y Vent Rate Y Mechanical Rate Y Pressure Support Vent Y Sodium Potassium Chloride Carbon Dioxide Anion Gap BUN Creatinine Creat Clearance w eGFR Random Glucose Calcium Total Bilirubin AST ALT Alkaline Phosphatase Total Protein Albumin Urine Color Urine Appearance Urine pH Ur Specific [place] Urine Protein Urine Glucose (UA) Urine Ketones Urine Blood Urine Nitrite Urine Bilirubin Urine Urobilinogen Ur Leukocyte Esterase RPR Titer Blood Type Antibody Screen 07/01/17 07/01/17 07/01/17 21:45 21:45 21:45 WBC RBC Hgb Hct MCV MCH MCHC RDW Plt Count MPV Total Counted Neutrophils % Neutrophils % (Manual) Lymphocytes % Lymphocytes % (Manual) Monocytes % Monocytes % (Manual) Eosinophils % Eosinophils % (Manual) Basophils % Differential Comment Platelet Estimate Platelet Comment PT with INR INR PTT (Actin FS) D-Dimer Anticoagulation Therapy Puncture Site ABG pH ABG pCO2 at Pt Temp ABG pO2 at Pt Temp ABG HCO3 ABG O2 Sat (Measured) ABG O2 Content ABG Base Excess Remberto Test O2 Delivery Device Oxygen Flow Rate Vent Mode Vent Rate Mechanical Rate Pressure Support Vent Sodium 138 Potassium 3.8 Chloride 105 Carbon Dioxide 25 Anion Gap 8 BUN 4 L Creatinine 0.6 Creat Clearance w eGFR Random Glucose 92 D Calcium 7.3 L Total Bilirubin AST ALT Alkaline Phosphatase Total Protein Albumin Urine Color Urine Appearance Urine pH Ur Specific [place] Urine Protein Urine Glucose (UA) Urine Ketones Urine Blood Urine Nitrite Urine Bilirubin Urine Urobilinogen Ur Leukocyte Esterase RPR Titer Nonreactive Blood Type A POSITIVE Antibody Screen Negative 07/01/17 21:45 WBC RBC Hgb Hct MCV MCH MCHC RDW Plt Count MPV Total Counted Neutrophils % Neutrophils % (Manual) Lymphocytes % Lymphocytes % (Manual) Monocytes % Monocytes % (Manual) Eosinophils % Eosinophils % (Manual) Basophils % Differential Comment Platelet Estimate Platelet Comment PT with INR INR PTT (Actin FS) D-Dimer 438 H Anticoagulation Therapy Puncture Site ABG pH ABG pCO2 at Pt Temp ABG pO2 at Pt Temp ABG HCO3 ABG O2 Sat (Measured) ABG O2 Content ABG Base Excess [place] Test O2 Delivery Device Oxygen Flow Rate Vent Mode Vent Rate Mechanical Rate Pressure Support Vent Sodium Potassium Chloride Carbon Dioxide Anion Gap BUN Creatinine Creat Clearance w eGFR Random Glucose Calcium Total Bilirubin AST ALT Alkaline Phosphatase Total Protein Albumin Urine Color Urine Appearance Urine pH Ur Specific [place] Urine Protein Urine Glucose (UA) Urine Ketones Urine Blood Urine Nitrite Urine Bilirubin Urine Urobilinogen Ur Leukocyte Esterase RPR Titer Blood Type Antibody Screen CXR - low lung volumes Microbiology 07/01/17 22:00 Nasopharyngeal Swab Influenza Types A,B Antigen (MARTHA) - Final 07/01/17 22:00 Nasopharyngeal Swab - Final ASSESSMENT AND PLAN: 32 yof 30 weeks , h/o hypothyroidism with Acute asthma exacerbation . -Acute asthma exacerbation -Left chest pain, more chest wall with tenderness over the area, worsening with cough suggest musculoskeletal rather than pleuritic - Hypothyriodism Plan: Solumedrol, slow taper, nebs, oxygen supplementation. leucocytosis could be reactive vs from recent steroids outpatient. Overall presentation not suspicious for pneumonia. Left sided pain is tender to touch, with cough, highly suggests musculoskeletal of from asthma and coughing paroxysms. Symptoms have improved, exam and presentation more suggestive of musculoskeletal etiology, will continue to monitor on current treatment and hold off on additional imaging for PE to avoid radiation risk especially given low suspicion, follow up Lower extremity dopplers. Confirmed with patient and pharmacy, patient on 250 mcg of levothyroxine, resume the same. Discussed with Dr. Copeland, plan for FHR monitoring and transfer to OB floor with close monitoring. Critical care time spent in ICU 35 min. Plan discussed with patient in detail, all questions answered.
[2017-07-02] MEDS ORDERED: TUBERCULIN PPD 5 TU/0.1ML SYRINGE (IN PATIENT USE ONLY) ID ONE (14:00)
[2017-07-02] MEDS ORDERED: D METHORPHAN HB PO PRN (14:13)
[2017-07-02] MEDS ORDERED: GUAIFENESIN PO PRN (14:13)
[2017-07-02] MEDS ORDERED: LEVOTHYROXINE NA 200 MCG TABLET PO ONE (14:15)
[2017-07-02] MEDS ORDERED: methylPREDNISolone NA SUCC 125 MG/2 ML VIAL IVPUSH SCH ×2 (15:00→22:00)
[2017-07-02 17:55] VITALS: TEMP 99
[2017-07-02 20:09] LABS: ARTERIAL BLD GAS O2 SATURATION 97.4 % (90-98.9); ARTERIAL BLOOD GAS BASE EXCESS -5.4 meq/l (-2-2); ARTERIAL BLOOD GAS HCO3 18.1 meq/L (22-26); ARTERIAL BLOOD GAS PO2 83.2 mmHg (80-100)
[2017-07-02 20:13] LABS: ART PUNCT SITE RIGHT RADIAL; LPM/O2% 3L; PT. ON O2? YES; TYPE OF O2 NASAL
[2017-07-02 20:26] LABS: FREE T4 1.17 ng/dl (0.76-1.46); THYROID STIMULATING HORMONE 18.1 uIU/ml (0.358-3.74)
[2017-07-02 21:30] VITALS: BP 132/45; PULSE 98
[2017-07-02] MEDS ORDERED: BUDESONIDE 0.25 MG/2ML INH SUSP VIAL NEB SCH (22:00)
[2017-07-03] MEDS ORDERED: LEVOTHYROXINE NA 125 MCG TABLET (FP) PO SCH (07:00)
[2017-07-03] MEDS ORDERED: LEVOTHYROXINE NA 50 MCG TABLET (FP) PO SCH (07:00)
[2017-07-03] MEDS ORDERED: PANTOPRAZOLE 40 MG TABLET (FP) PO SCH (10:00)
[2017-07-03] MEDS ORDERED: PRENATAL VITAMINS W/ FOLIC ACID TABLET (FP) PO SCH (10:00)
--- NOTE | 2017-07-05 14:42 | EKG ---
Test Reason : Blood Pressure : / mmHG Vent. Rate : 084 BPM Atrial Rate : 084 BPM P-R Int : 148 ms QRS Dur : 086 ms QT Int : 386 ms P-R-T Axes : 016 004 004 degrees QTc Int : 456 ms NORMAL SINUS RHYTHM POSSIBLE LEFT ATRIAL ENLARGEMENT CANNOT RULE OUT ANTERIOR INFARCT , AGE UNDETERMINED ABNORMAL ECG WHEN COMPARED WITH ECG OF 28-JUN-2017 15:07, NO SIGNIFICANT CHANGE WAS FOUND Confirmed by DANA PERES, DEIDRE ([id number]) on 07/05/2017 2:42:43 PM Referred By: Confirmed By:DEIDRE CORTEZ MD
== END 2017-07-03 00:30 | disposition short-term general hospital (02) | DRG 566 ==
LOC: JER 11:37 → JERBED 17:18 → J8W 20:20 → JICU 21:11 → J3W 07-02 13:53 → JICU 07-02 18:12
PROVIDERS: ADMIT Obstetrics & Gynecology; ATTEND Obstetrics & Gynecology
DX: O26.893 Other specified pregnancy related conditions, third trimester (principal); O99.283 Endocrine, nutritional and metabolic diseases complicating pregnancy, third trimester; E03.9 Hypothyroidism, unspecified; Z3A.30 30 weeks gestation of pregnancy; J45.901 Unspecified asthma with (acute) exacerbation; J06.9 Acute upper respiratory infection, unspecified; Z87.891 Personal history of nicotine dependence; R07.9 Chest pain, unspecified; D72.829 Elevated white blood cell count, unspecified
CPT/HCPCS: 36415; 36600; 71010-TC; 80048; 80053; 81003; 82803; 84439; 84443; 84481; 85025; 85379; 85610; 85730; 86593; 86850; 86900; 86901; 87086; 87804; 93005; 93010; 93970-TC; 94150; 94640; 99282-25

== ENCOUNTER 2017-07-14 04:09 | Emergency (ER) | payer OTHER | END 2017-07-14 05:55 | disposition left against medical advice (07) | LOC: JER 04:09 | DX: Z53.21 Procedure and treatment not carried out due to patient leaving prior to being seen by health care provider (principal) ==

== ENCOUNTER 2017-09-07 08:45 | Inpatient (IN) | payer OTHER ==
[2017-09-07] MEDS ORDERED: CITRIC ACID/SODIUM CITRATE 30 ML UNIT-DOSE CUP PO ONE (10:00)
[2017-09-07] MEDS ORDERED: DEXTROSE 5%-LACTATED RINGERS 500 ML IV ONE ×2 (10:00→11:00)
[2017-09-07] MEDS ORDERED: DEXTROSE 5%-LACTATED RINGERS 1,000 ML IV SCH (13:00)
[2017-09-07] MEDS ORDERED: morphine SULFATE/Preservative Free 0.5 MG/ML (1cc Syringe) ONE (13:40)
[2017-09-07] MEDS ORDERED: ePHEDrine SULFATE 50 MG/1 ML AMPULE ONE (13:40)
--- NOTE | 2017-09-07 13:51 | HP ---
Past Medical History - Admission Chief Complaint: Previous in labor History of Present Illness: 32yo @ 39 weeks gestation,with previous , presents to L&D due to labor pain. She was then admitted for repeat . History Source: Patient Limitations to Obtaining History: No Limitations - Past Medical History Pulmonary: Yes: Asthma ...: 6 ...Para: 4 ...Term: 4 ...: 0 ...Spon : 1 ...Induced : 0 ...Multiple Gestation: 0 ...LMP: 12/03/16 ... Weeks Gestation by Dates: 39.2 ...EDC by Dates: 09/12/17 ...EDC by Sono: 09/19/17 Heme/Onc: Yes: Anemia Endocrine: Yes: Hypothyroidism - Past Surgical History Past Surgical History: Yes: Hx Myomectomy: No Hx Transabdominal Cerclage: No - Smoking History Smoking history: Never smoked Have you smoked in the past 12 months: No Aproximately how many cigarettes per day: 7 If you are a former smoker, when did you quit?: 2014 - Alcohol/Substance Use Hx Alcohol Use: No History of Substance Use: reports: None - Social History ADL: Independent History of Recent Travel: No Home Medications - Allergies Allergies/Adverse Reactions: Allergies Allergy/AdvReac Type Severity Reaction Status Date / Time No Known Allergies Allergy Verified 09/07/17 09:14 - Home Medications Home Medications: Ambulatory Orders Levothyroxine [Synthroid -] 250 mcg PO DAILY 07/01/17 Vit Calc,Iron,Folic [ Vitamins] 1 tab PO DAILY 07/01/17 Family Disease History - Family Disease History Family Disease History: Other: Mother Review of Systems - Review of Systems Constitutional: reports: No Symptoms Eyes: reports: No Symptoms HENT: reports: No Symptoms Neck: reports: No Symptoms Cardiovascular: reports: No Symptoms Respiratory: reports: No Symptoms Gastrointestinal: reports: No Symptoms Genitourinary: reports: Pain Breasts: reports: No Symptoms Reported Musculoskeletal: reports: No Symptoms Integumentary: reports: No Symptoms Neurological: reports: No Symptoms Endocrine: reports: No Symptoms Hematology/Lymphatic: reports: No Symptoms Psychiatric: reports: No Symptoms Pain Intensity: 3 Physical Exam - Maternity Vital Signs: Vital Signs Temperature 98 F 09/07/17 13:15 Pulse Rate 84 09/07/17 12:00 Respiratory Rate 20 09/07/17 13:15 Blood Pressure 115/67 09/07/17 13:15 O2 Sat by Pulse Oximetry (%) Constitutional: Yes: Well Nourished Eyes: Yes: Conjunctiva Clear HENT: Yes: Atraumatic Neck: Yes: Supple Cardiovascular: Yes: Regular Rate and Rhythm Lungs: Clear to auscultation - Abdominal Exam/OB Number of Fetuses: Single Presentation: Vertex - Physical Exam ...Motor Strength: WNL Psychiatric: Yes: Alert, Oriented Problem List - Problems (1) Previous section complicating , antepartum condition or complication Code(s): O34.219 - MATERNAL CARE FOR UNSP TYPE SCAR FROM PREVIOUS DEL Assessment/Plan Previous in labor Admit for repeat Consent signed Anesthesia to see patient
[2017-09-07] MEDS ORDERED: ceFAZolin SODIUM 1 GM VIAL ONE (13:59)
[2017-09-07] MEDS ORDERED: PHENYLEPHRINE HCL 10 MG/1 ML SINGLE DOSE VIAL ONE (14:00)
[2017-09-07] MEDS ORDERED: OXYTOCIN 10 UNITS/ML VIAL ONE ×2 (14:01→14:10)
[2017-09-07] MEDS ORDERED: MIDAZOLAM HCL 2 MG/2 ML SINGLE DOSE VIAL ONE (14:24)
--- NOTE | 2017-09-07 14:37 | OP ---
Operative Note - Note: Operative Date: 09/07/17 Pre-Operative Diagnosis: Previous in labor Operation: Repeat Low Transverse Findings: Baby boy in Lot position Post-Operative Diagnosis: Same as Pre-op Surgeon: Yany Yarbrough Stone Polisher Hand: Daniel Pat Anesthesia: Spinal Specimens Removed: Placenta Estimated Blood Loss (mls): 600
[2017-09-07] MEDS ORDERED: KETOROLAC TROMETHAMINE 30 MG/1 ML VIAL ONE (14:38)
[2017-09-07] MEDS ORDERED: OXYTOCIN 20 UNITS in 0.9% NS 20 UNIT/1,000 ML INFUS.BAG IV SCH (14:45)
[2017-09-07] MEDS: IBUPROFEN 800 MG/8 ML IJ IVPB PRN ×2 (15:20→21:44)
[2017-09-07] MEDS ORDERED: OXYTOCIN 20 UNITS in 0.9% NS 20 UNIT/1,000 ML INFUS.BAG IV ONE (16:07)
[2017-09-07] MEDS ORDERED: LEVOTHYROXINE NA 25 MCG TABLET (FP) PO ONE (16:30)
[2017-09-07] MEDS ORDERED: DIPHTH,PERTUSS(ACELL),TET 0.5 ML DISP.SYRIN IM ONE (16:42)
[2017-09-07] MEDS: FERROUS SO4 325 MG TABLET (FP) PO SCH (17:06)
[2017-09-07] MEDS: ACETAMINOPHEN 1000 MG/100 ML VIAL (NON FORMULARY) IVPB PRN (18:29)
[2017-09-07] MEDS: METHYLERGONOVINE MALEATE 0.2 MG/1 ML AMP IM PRN ×2 (18:42→23:53)
[2017-09-07] MEDS: ONDANSETRON 4 MG/2 ML VIAL IVPUSH PRN (20:30)
[2017-09-07] MEDS: oxyCODONE HCL 5 MG TABLET PO PRN (21:01)
[2017-09-07] MEDS: SIMETHICONE 80 MG TAB.CHEW (FP) PO PRN (21:02)
[2017-09-08] MEDS: ACETAMINOPHEN 1000 MG/100 ML VIAL (NON FORMULARY) IVPB PRN (02:30)
[2017-09-08] MEDS: SIMETHICONE 80 MG TAB.CHEW (FP) PO PRN ×2 (02:34→09:49)
[2017-09-08] MEDS: oxyCODONE HCL 5 MG TABLET PO PRN ×4 (02:34→18:09)
[2017-09-08] MEDS: ONDANSETRON 4 MG/2 ML VIAL IVPUSH PRN ×2 (03:55→22:58)
[2017-09-08] MEDS: IBUPROFEN 800 MG/8 ML IJ IVPB PRN (04:14)
[2017-09-08] MEDS: ACETAMINOPHEN 325 MG TABLET (FP) PO PRN ×3 (08:25→18:11)
[2017-09-08 08:59] LABS: BASO % 0.3 % (0-2.0); EOS % 0.9 % (0-4.5); LYMPH % 20.7 % (8-40); MCH 29.9 pg (25.7-33.7); MCHC 33.4 g/dl (32.0-36.0); MEAN CELL VOLUME 89.3 fl (80-96); NEUT % 73.1 % (42.8-82.8); PLATELET COUNT 125 K/MM3 (134-434); RBC 4.03 M/mm3 (3.60-5.2); RDW 14.7 % (11.6-15.6); WHITE BLOOD COUNT 11.7 K/mm3 (4.0-10.0)
--- NOTE | 2017-09-08 09:15 | PN ---
Post Progress Note - Subjective Subjective: 32 yo Para 1 status post repeat ,seen and evaluated. She c/o incision pain. Post Day: 1 Type of Delivery: Repeat C/S Vital Signs: Vital Signs Temperature 97.8 F 09/08/17 06:00 Pulse Rate 72 09/08/17 06:00 Respiratory Rate 20 09/08/17 06:00 Blood Pressure 104/72 09/08/17 06:00 O2 Sat by Pulse Oximetry (%) 97 09/07/17 20:52 Breast Exam: Yes: Soft Uterus: Yes: Fundus Firm Incision: Yes: Dressing dry and intact Abdomen/GI: Yes: Abdomen soft, Tolerating PO Lochia: Yes: Rubra Lochia, amount: Moderate Extremities: Yes: Calves non-tender Perineum: Yes: Intact Activity: Ambulating - Labs Labs: CBC WBC 11.7 K/mm3 (4.0-10.0) H 09/08/17 07:45 RBC 4.03 M/mm3 (3.60-5.2) 09/08/17 07:45 Hgb 12.0 GM/dL (10.7-15.3) D 09/08/17 07:45 Hct 36.0 % (32.4-45.2) 09/08/17 07:45 MCV 89.3 fl (80-96) 09/08/17 07:45 MCH 29.9 pg (25.7-33.7) 09/08/17 07:45 MCHC 33.4 g/dl (32.0-36.0) 09/08/17 07:45 RDW 14.7 % (11.6-15.6) 09/08/17 07:45 Plt Count 125 K/MM3 (134-434) L 09/08/17 07:45 MPV 11.0 fl (7.5-11.1) 09/08/17 07:45 Neutrophils % 73.1 % (42.8-82.8) 09/08/17 07:45 Lymphocytes % 20.7 % (8-40) 09/08/17 07:45 Monocytes % 5.0 % (3.8-10.2) 09/08/17 07:45 Eosinophils % 0.9 % (0-4.5) 09/08/17 07:45 Basophils % 0.3 % (0-2.0) 09/08/17 07:45 Problem List - Problems (1) Previous section complicating , antepartum condition or complication Code(s): O34.219 - MATERNAL CARE FOR UNSP TYPE SCAR FROM PREVIOUS DEL Assessment/Plan Status post Ambulation Analgesia as needed Continue post op care
[2017-09-08] MEDS: PRENATAL VITAMINS W/ FOLIC ACID TABLET (FP) PO SCH (09:48)
[2017-09-08] MEDS: FERROUS SO4 325 MG TABLET (FP) PO SCH ×2 (09:48→17:15)
[2017-09-08] MEDS ORDERED: DIPHTH,PERTUSS(ACELL),TET 0.5 ML DISP.SYRIN IM ONE (10:00)
[2017-09-08] MEDS ORDERED: BISACODYL 10 MG SUPP.RECT RC PRN (14:34)
--- NOTE | 2017-09-08 18:39 | PN ---
Progress Note (short form) - Note Progress Note: Anesthesia postop note, POD#1, S/p repeat , under spinal with duramorph. 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 C/o pain, in her thoracic spine. in additional to incision pain. Pat AAOx3. Aggravated over the uncontrolled pain. has not been receiving her po percocet 24 hours after as per protocet. VSS. Ambulating. bryce is on scheduled NSAID and percocet. Can start her percocet on schedule. No apparent post anesthesia related comlications. signed off.
[2017-09-09] MEDS: oxyCODONE HCL 5 MG TABLET PO PRN ×5 (00:10→21:24)
[2017-09-09] MEDS: SIMETHICONE 80 MG TAB.CHEW (FP) PO PRN ×5 (00:10→21:24)
[2017-09-09] MEDS: ACETAMINOPHEN 325 MG TABLET (FP) PO PRN ×5 (00:10→21:25)
[2017-09-09] MEDS: IBUPROFEN 600 MG TABLET (FP) PO PRN (01:52)
[2017-09-09] MEDS: LEVOTHYROXINE NA 125 MCG TABLET (FP) PO SCH (06:46)
--- NOTE | 2017-09-09 07:53 | PN ---
Progress Note (short form) - Note Progress Note: s/p repeat c/s c/o low abdominal pain , cramps ,no excess vaginal bleeding CBC, BMP 09/08/17 07:45 Last Vital Signs Temp Pulse Resp BP Pulse Ox 98.0 F 80 20 117/72 97 09/08/17 19:56 09/08/17 19:56 09/08/17 19:56 09/08/17 19:56 09/07/17 20:52 abdomen soft, no distension, no cva incision dry, clean no calf tenderness plan ambulate, pain management
[2017-09-09] MEDS: FERROUS SO4 325 MG TABLET (FP) PO SCH ×2 (08:56→17:15)
[2017-09-09] MEDS: PRENATAL VITAMINS W/ FOLIC ACID TABLET (FP) PO SCH (09:02)
[2017-09-10] MEDS: SIMETHICONE 80 MG TAB.CHEW (FP) PO PRN ×4 (03:44→20:14)
[2017-09-10] MEDS: ACETAMINOPHEN 325 MG TABLET (FP) PO PRN ×3 (03:45→15:03)
[2017-09-10] MEDS: oxyCODONE HCL 5 MG TABLET PO PRN ×4 (03:46→20:14)
[2017-09-10] MEDS: LEVOTHYROXINE NA 125 MCG TABLET (FP) PO SCH (06:18)
[2017-09-10 07:02] LABS: BASO % 0.4 % (0-2.0); EOS % 2.1 % (0-4.5); HEMATOCRIT 37.4 % (32.4-45.2); HEMOGLOBIN 12.3 GM/dL (10.7-15.3); LYMPH % 24.2 % (8-40); MCH 29.8 pg (25.7-33.7); MCHC 32.9 g/dl (32.0-36.0); MEAN CELL VOLUME 90.6 fl (80-96); MEAN PLT VOLUME 10.4 fl (7.5-11.1); MONO % 4.7 % (3.8-10.2); NEUT % 68.6 % (42.8-82.8); PLATELET COUNT 167 K/MM3 (134-434); RBC 4.12 M/mm3 (3.60-5.2); RDW 15.3 % (11.6-15.6); WHITE BLOOD COUNT 10.9 K/mm3 (4.0-10.0)
--- NOTE | 2017-09-10 07:20 | PN ---
Post Progress Note - Subjective Subjective: 32 yo Para 5 status post repeat , seen and evaluated. She c/o incision pain but is ambulating. Post Day: 3 Type of Delivery: Repeat C/S Vital Signs: Vital Signs Temperature 98.7 F 09/09/17 21:23 Pulse Rate 78 09/09/17 21:23 Respiratory Rate 20 09/09/17 21:23 Blood Pressure 108/70 09/09/17 21:23 O2 Sat by Pulse Oximetry (%) 97 09/07/17 20:52 Breast Exam: Yes: Soft Uterus: Yes: Fundus Firm Incision: Yes: Other (Steri strips in place) Abdomen/GI: Yes: Abdomen soft, Tolerating PO Lochia: Yes: Rubra Lochia, amount: Small Extremities: Yes: Calves non-tender Perineum: Yes: Intact Activity: Ambulating - Labs Labs: CBC WBC 11.7 K/mm3 (4.0-10.0) H 09/08/17 07:45 RBC 4.03 M/mm3 (3.60-5.2) 09/08/17 07:45 Hgb 12.0 GM/dL (10.7-15.3) D 09/08/17 07:45 Hct 36.0 % (32.4-45.2) 09/08/17 07:45 MCV 89.3 fl (80-96) 09/08/17 07:45 MCH 29.9 pg (25.7-33.7) 09/08/17 07:45 MCHC 33.4 g/dl (32.0-36.0) 09/08/17 07:45 RDW 14.7 % (11.6-15.6) 09/08/17 07:45 Plt Count 125 K/MM3 (134-434) L 09/08/17 07:45 MPV 11.0 fl (7.5-11.1) 09/08/17 07:45 Neutrophils % 73.1 % (42.8-82.8) 09/08/17 07:45 Lymphocytes % 20.7 % (8-40) 09/08/17 07:45 Monocytes % 5.0 % (3.8-10.2) 09/08/17 07:45 Eosinophils % 0.9 % (0-4.5) 09/08/17 07:45 Basophils % 0.3 % (0-2.0) 09/08/17 07:45 Problem List - Problems (1) Previous section complicating , antepartum condition or complication Code(s): O34.219 - MATERNAL CARE FOR UNSP TYPE SCAR FROM PREVIOUS DEL (2) Status post repeat low transverse section Code(s): Z98.891 - HISTORY OF UTERINE SCAR FROM PREVIOUS SURGERY Assessment/Plan Status post repeat Stable Continue routine post op care
[2017-09-10] MEDS: FERROUS SO4 325 MG TABLET (FP) PO SCH ×2 (08:12→17:14)
[2017-09-10] MEDS: PRENATAL VITAMINS W/ FOLIC ACID TABLET (FP) PO SCH (09:42)
[2017-09-10] MEDS ORDERED: diphenhydrAMINE HCL 25 MG CAPSULE (FP) PO PRN (10:38)
[2017-09-10] MEDS: diphenhydrAMINE HCL 25 MG CAPSULE (FP) PO PRN ×2 (18:14→23:53)
[2017-09-10] MEDS: IBUPROFEN 600 MG TABLET (FP) PO PRN (20:14)
[2017-09-11] MEDS: SIMETHICONE 80 MG TAB.CHEW (FP) PO PRN ×2 (03:06→09:59)
[2017-09-11] MEDS: oxyCODONE HCL 5 MG TABLET PO PRN (03:06)
[2017-09-11] MEDS: IBUPROFEN 600 MG TABLET (FP) PO PRN ×2 (03:07→09:59)
[2017-09-11] MEDS: LEVOTHYROXINE NA 125 MCG TABLET (FP) PO SCH (06:09)
[2017-09-11] MEDS: diphenhydrAMINE HCL 25 MG CAPSULE (FP) PO PRN ×2 (06:09→11:46)
[2017-09-11] MEDS: FERROUS SO4 325 MG TABLET (FP) PO SCH (08:14)
[2017-09-11 08:49] VITALS: BP 129/79; PULSE 82; TEMP 98.7
--- NOTE | 2017-09-11 09:07 | DS ---
Physical Exam-CARDIAC TECHNOLOGIST Vital Signs: Vital Signs Temperature 98.7 F 09/11/17 08:47 Pulse Rate 82 09/11/17 08:47 Respiratory Rate 20 09/11/17 08:47 Blood Pressure 129/79 09/11/17 08:47 O2 Sat by Pulse Oximetry (%) 97 09/07/17 20:52 Constitutional: Yes: Well Nourished Eyes: Yes: Conjunctiva Clear HENT: Yes: Atraumatic Neck: Yes: Supple Cardiovascular: Yes: Regular Rate and Rhythm Respiratory: Yes: Regular Gastrointestinal: Yes: Normal Bowel Sounds External Genitalia: Yes: Normal Cervix: Yes: Normal Uterus: Yes: Normal Wound/Incision: Yes: Well Approximated, Steri Strips (in place) Neurological: Yes: Alert, Oriented ...Motor Strength: WNL Psychiatric: Yes: Alert, Oriented Labs: CBC, BMP 09/10/17 06:12 Delivery - Delivery Type of Anesthesia: Spinal Episiotomy/Laceration: None EBL (cc): 500 Delivery, Single - Stages of Labor Date of Delivery: 09/07/17 Time of Delivery: 14:10 Time Placenta Delivered: 14:11 - Condition of Infant Aviation Safety Technician/Healthcare Sales Representative Present: Yes Name: Gerson Ray Gender: Male Weight: 5 lb 13 oz Total Hours ROM (Hrs/Mins): 0/01 - 1 Minute Total Score: 9 5 Minutes Total Score: 9 - Feeding Plan Initial Plan: Elected not to breastfeed exclusively throughout hospitalization Discharge Summary Reason For Visit: LABOR ADMISSION Current Active Problems Previous section complicating , antepartum condition or complication (Acute) Status post repeat low transverse section (Acute) Procedures: Principal: Repeat Low Transverse Hospital Course: After patient received treatment for generalized body itch and pain management. Condition: Good - Instructions Diet, Activity, Other Instructions: Regular diet No driving, no lifting x 2 weeks F/U in clinic in [address] [facility] for appointment. [phone] Disposition: HOME - Home Medications Comprehensive Discharge Medication List: Ambulatory Orders Levothyroxine [Synthroid -] 250 mcg PO DAILY 07/01/17 Vit Calc,Iron,Folic [ Vitamins] 1 tab PO DAILY 07/01/17
[2017-09-11] MEDS: PRENATAL VITAMINS W/ FOLIC ACID TABLET (FP) PO SCH (09:59)
[2017-09-11] MEDS: ACETAMINOPHEN 325 MG TABLET (FP) PO PRN (10:00)
--- NOTE | 2017-09-14 17:08 | PATH ---
Surgical Pathology Report Patient Name: CHANTAL DEL VALLE [facility]. Rec. #: [id number] /Age/Gender: 1985 (Age: 32) / F Account: [id number] Location: [facility] OBS/FORGING ENGINEER Taken: 09/07/2017 Received: 09/08/2017 Reported: 09/14/2017 Physicians: Yany Yarbrough M.D. Specimen(s) Received PLACENTA Clinical History Final Diagnosis PLACENTA, SECTION: 397 g THIRD TRIMESTER PLACENTA WITH FOCAL INTRAPARENCHYMAL INFARCT (~15% PLACENTAL SURFACE),TRIVASCULAR UMBILICAL CORD AND UNREMARKABLE PLACENTAL MEMBRANES. Electronically Signed Laverne Rivera M.D. Gross Description The specimen is received fresh labeled placenta and is a 397 gram, 18.0 x 13.5 x 3.0 cm. placenta with attached membranes and umbilical cord. The attached membranes are neal, translucent with focal opacities and insert marginally. The umbilical cord measures 23 cm. in length and averages 1.1 cm. in diameter. The cord inserts eccentrically, 2 cm. to the nearest margin. No true knots or strictures are identified. Cut surface of the umbilical cord reveals 3 vessels. The surface is guzman-blue with minimal fibrin deposition and appropriate caliber vessels. The maternal surface is red-brown with focal defects. Sectioning reveals a 2.5 x 1.3 x 1.2 cm neal intraparenchymal mass. The remaining placental parenchyma is red-brown and spongy. Piano Machine Operator sections are submitted in 4 cassettes as follows: 1-membrane roll and umbilical cord; 2-lesion; 3-4-full thickness sections of placenta. 09/13/2017 [facility]09/13/2017
== END 2017-09-11 13:00 | disposition home or self-care (01) | DRG 540 ==
LOC: JDEL 08:45 → JLDR 10:00 → J3W 16:29
PROVIDERS: ADMIT Obstetrics & Gynecology; ATTEND Obstetrics & Gynecology
PROC: 10D00Z1 Extraction of Products of Conception, Low, Open Approach (ICD-10-PCS; principal; 2017-09-07)
DX: O34.219 Maternal care for unspecified type scar from previous cesarean delivery (principal); O99.284 Endocrine, nutritional and metabolic diseases complicating childbirth; E03.8 Other specified hypothyroidism; Z3A.39 39 weeks gestation of pregnancy; Z37.0 Single live birth
CPT/HCPCS: 36415; 85025; 88307-TC; 90715

== ENCOUNTER 2018-05-12 21:02 | Inpatient (IN) | payer OTHER ==
[2018-05-12] MEDS ORDERED: morphine CARPU-JECT 4 MG/1 ML DISP.SYRIN IVPUSH ONE (23:12)
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
[2018-05-12] MEDS ORDERED: SODIUM CHLORIDE 0.9% 500 ML INFUS.BAG IV ONE (23:21)
[2018-05-12] MEDS ORDERED: FENTANYL PATCH WASTE MC PRN (23:30)
[2018-05-12] MEDS ORDERED: fentaNYL 25mcg/hr PATCH.TD72 TD SCH (23:30)
--- NOTE | 2018-05-12 23:41 | PDOC ---
Attending Attestation - Resident Resident Name: Kamran Obrien - ED Attending Attestation I have performed the following: I have examined & evaluated the patient, The case was reviewed & discussed with the resident, I agree w/resident's findings & plan, Exceptions are as noted - HPI HPI: 05/12/18 23:39 33-year-old female with history of hypothyroidism, anemia, hyperprolactinemia, spinal AVM between T4 and T5 status post embolization presents with acute on chronic back pain. Patient reports that ever since she found her AVM, she had an embolization performed that has left her with chronic midthoracic pain. Patient reports that she's been successfully been able to control her back pain. However, 4 days ago, the patient underwent radioablation which she receives every 2 months. Since then, the patient has been endorsing progressive paresthesias and numbness along the right anterior thigh extending down to her knee. Reports that movement severely worsens the pain. Denies any urinary or bowel incontinence. Typically, the Percocet controls the pain but has not recently. - Physicial Exam PE: 05/12/18 23:40 GENERAL: Awake, alert, and fully oriented, in no acute distress HEAD: No signs of trauma EYES: EOMI, sclera anicteric, conjunctiva clear ENT: Auricles normal inspection, hearing grossly normal, nares patent, Moist mucosa NECK: Normal ROM, supple ABDOMEN: Soft, nontender,. No guarding, no rebound. No masses BACK: TTP ~T4-T5. R mid and R lower back tenderness to palpation. EXTREMITIES: Normal range of motion, no edema. No clubbing or cyanosis. No cords, erythema, or tenderness NEUROLOGICAL: Cranial nerves II through XII grossly intact. +endorses numbness R anterior and lateral thigh. SKIN: Warm, Dry, normal turgor, no rashes or lesions noted. - Medical Decision Making 05/12/18 23:40 Vital Signs Temp Pulse Resp BP Pulse Ox 98.1 F 92 H 18 127/79 100 05/12/18 21:04 05/12/18 21:04 05/12/18 21:04 05/12/18 21:04 05/12/18 21:04 Patient with acute on chronic pain with developing right lower extremity numbness over several days. We'll need to evaluate for a neurological deficit secondary to back pain particularly with a history of AVM. We'll obtain a CAT scan of the thoracic and lumbar spine and order an MRI. Pain control and admit the patient to the hospital for further evaluation. <Barrington Barber - Last Filed: 05/13/18 00:37> - Medical Decision Making 05/13/18 03:24 Pt signed out to me; awaiting CT scan and she will be admitted for pain control and MRI spine to be done during this admission. Patient Name: CHANTAL DEL VALLE THIS IS A PRELIMINARY REPORT FROM [facility] DATE OF SERVICE: 2018-05-13 01:49:07 IMAGES: [id number] EXAM: CT thoracic spine with contrast and CT lumbar spine with contrast HISTORY: Back pain neurological deficits COMPARISON: None. FINDINGS: CT thoracic spine: No fracture or subluxation. No suspicious bone lesions. No discrete disc pathology. There is abnormal enhancement. The size lungs are clear. CT thoracic spine: No fracture or subluxation. No suspicious bone lesions. No discrete disc pathology. There is no abnormal enhancement. IMPRESSION: Normal enhanced CT of the thoracic and lumbar spine. <Tata Han - Last Filed: 05/13/18 03:25> Heart Score/ECG Review #1 ECG reviewed & interpreted by me at: 00:30 05/13/18 00:37 NSR 51, no std/tonio, TWI V2- V3, III, QTC 411 msec <Barrington Barber - Last Filed: 05/13/18 00:37>
[2018-05-12] MEDS ORDERED: morphine SULFATE 4 MG/ML VIAL ONE (23:47)
[2018-05-13 00:06] LABS: URINE APPEARANCE CLEAR; URINE BILIRUBIN NEGATIVE (<2.0 mg/dL); URINE COLOR LTYELLOW; URINE GLUCOSE (UA) NEGATIVE (NEGATIVE); URINE KETONE NEGATIVE (NEGATIVE); URINE LEUK ESTERASE TRACE (NEGATIVE); URINE NITRITE NEGATIVE (NEGATIVE); URINE PROTEIN NEGATIVE (NEGATIVE); URINE UROBILINOGEN NEGATIVE mg/dL (0.2-1.0)
[2018-05-13 00:14] LABS: EPI CELLS RARE /HPF (FEW); URINE BACTERIA RARE /hpf (NONE SEEN); URINE MUCUS RARE
[2018-05-13 00:15] LABS: BASO % 0.9 % (0-2.0); EOS % 1.5 % (0-4.5); HEMOGLOBIN 13.3 GM/dL (10.7-15.3); LYMPH % 30.5 % (8-40); MCH 29.9 pg (25.7-33.7); MCHC 33.3 g/dl (32.0-36.0); MEAN CELL VOLUME 89.6 fl (80-96); MEAN PLT VOLUME 10.5 fl (7.5-11.1); MONO % 4.9 % (3.8-10.2); NEUT % 62.2 % (42.8-82.8); PLATELET COUNT 190 K/MM3 (134-434); RBC 4.46 M/mm3 (3.60-5.2); RDW 13.7 % (11.6-15.6); WHITE BLOOD COUNT 12.6 K/mm3 (4.0-10.0)
[2018-05-13] MEDS ORDERED: ACETAMINOPHEN 1000 MG/100 ML VIAL (NON FORMULARY) IVPB ONE (00:36)
[2018-05-13] MEDS ORDERED: morphine CARPU-JECT 4 MG/1 ML DISP.SYRIN IVPUSH ONE (00:36)
[2018-05-13 00:59] LABS: ALBUMIN 3.4 g/dl (3.4-5.0); ALK PHOS 68 U/L (45-117); ANION GAP 6 MMOL/L (8-16); BILIRUBIN,TOTAL 0.3 mg/dL (0.2-1); BLOOD UREA NITROGEN 16 mg/dL (7-18); CALCIUM 8.6 mg/dL (8.5-10.1); CHLORIDE 110 mmol/L (98-107); CO2 25 mmol/L (21-32); CREATININE 0.9 mg/dL (0.55-1.3); GLUCOSE,RANDOM 87 mg/dL (74-106); POTASSIUM 4.7 mmol/L (3.5-5.1); SGOT/AST 26 U/L (15-37); SGPT/ALT 33 U/L (13-61); SODIUM 141 mmol/L (136-145); TOT PROT 6.5 g/dl (6.4-8.2)
[2018-05-13] MEDS ORDERED: morphine SULFATE 4 MG/ML VIAL ONE (01:02)
[2018-05-13] MEDS ORDERED: fentaNYL 25mcg/hr PATCH.TD72 ONE (01:03)
[2018-05-13] MEDS ORDERED: ACETAMINOPHEN INJECTION 100 ML IVPB ONE (01:09)
--- NOTE | 2018-05-13 04:35 | PDOC ---
*Physical Exam - Vital Signs Last Vital Signs Temp Pulse Resp BP Pulse Ox 98.1 F 92 H 18 127/79 100 05/12/18 21:04 05/12/18 21:04 05/12/18 21:04 05/12/18 21:04 05/12/18 21:04 ED Treatment Course - LABORATORY CBC & Chemistry Diagram: 05/15/18 08:35 05/15/18 08:35 - ADDITIONAL ORDERS Additional order review: Laboratory Results 05/12/18 05/12/18 05/12/18 23:40 23:40 00:20 Sodium 141 Potassium 4.7 Chloride 110 H Carbon Dioxide 25 Anion Gap 6 L BUN 16 Creatinine 0.9 Creat Clearance w eGFR > 60 Random Glucose 87 Calcium 8.6 Total Bilirubin 0.3 AST 26 ALT 33 Alkaline Phosphatase 68 Total Protein 6.5 Albumin 3.4 Urine Color Ltyellow Urine Appearance Clear Urine pH 7.0 Ur Specific [place] 1.023 Urine Protein Negative Urine Glucose (UA) Negative Urine Ketones Negative Urine Blood Negative Urine Nitrite Negative Urine Bilirubin Negative Urine Urobilinogen Negative Ur Leukocyte Esterase Trace Urine WBC (Auto) 2 Urine RBC (Auto) 1 Ur Epithelial Cells Rare Urine Bacteria Rare Urine Mucus Rare Urine HCG, Qual Negative 05/12/18 00:05 RBC 4.46 MCV 89.6 MCHC 33.3 RDW 13.7 D MPV 10.5 Neutrophils % 62.2 Lymphocytes % 30.5 D Monocytes % 4.9 Eosinophils % 1.5 Basophils % 0.9 - Medications Given in the ED: ED Medications Discontinued Medications Generic Name Dose Route Start Last Admin Trade Name Glennq PRN Reason Stop Dose Admin Acetaminophen 1,000 mg 05/13/18 00:36 05/13/18 01:08 Ofirmev Injection - IVPB 05/13/18 00:37 1,000 mg ONCE ONE Administration Morphine Sulfate 4 mg 05/12/18 23:12 05/12/18 23:50 Morphine Injection - IVPUSH 05/12/18 23:13 4 mg ONCE ONE Administration Morphine Sulfate 4 mg 05/13/18 00:36 05/13/18 01:08 Morphine Injection - IVPUSH 05/13/18 00:37 4 mg ONCE ONE Administration Sodium Chloride 1,000 ml 05/12/18 23:21 05/12/18 23:50 Normal Saline - IV 05/12/18 23:22 1,000 ml ONCE ONE Administration Medical Decision Making - Medical Decision Making 05/26/18 09:11 Patient signed out by Dr. Obrien In short 33 yo F w a hx of hypothyroidism, anemia, hypoprolactinemia, Spinal AVM between T4/T5 is here with intense R sided back pain, Right Thigh numbness and lack of sensation, constant dizziness and lightheadedness, and Burning and throbbing pain in her right calf. ED course: Patient admitted to medicine for further workup and evaluation. *DC/Admit/Observation/Transfer Diagnosis at time of Disposition: Back pain - Discharge Dispostion Disposition: AGAINST MEDICAL ADVICE Condition at time of disposition: Good Decision to Admit order: Yes - Referrals - Patient Instructions - Post Discharge Activity
[2018-05-13] MEDS ORDERED: CYCLOBENZAPRINE HCL 5 MG TABLET PO SCH (06:00)
[2018-05-13] MEDS: CYCLOBENZAPRINE HCL 10 MG TABLET (FP) PO SCH ×3 (06:02→22:07)
[2018-05-13] MEDS: MORPHINE SULFATE 2 MG/ML VIAL IVPUSH PRN ×6 (06:03→22:36)
--- NOTE | 2018-05-13 06:12 | HP ---
CHIEF COMPLAINT: severe back pain and right leg numbness PCP: Marlene Troncoso Pain Management: Kamran Montiel HISTORY OF PRESENT ILLNESS: 33 yo female with PMH of hypothyroidism, hypoprolactinemia, pituitary adenoma ( not seen on recent MRI), AVM between T5-T6 s/p embolization 3 years ago, presents for severe back pain on the right side that radiates down her leg into her foot. She states that she sees pain management regularly, and that the has regular radiofrequency treatments as needed. She usually states that she has some soreness following the radiofrequency treatments. She states that she had her most recent treatment was 4 days ago. She states that she started having severe pain following this treatment that she has not had before. She denies any trauma, falls, or heavy lifting. She states that her pain is recently controlled with Percocet 10 QID, Flexeril TID, and Tramadol. She states that she has tried gabapentin in the past and becomes very nauseas. She says that her pain is usually well controlled but that it is currently severe and uncontrolled by her home regimen. She also endorses anterior thigh loss of sensation which started as throbbing and parasthesias and progressed to numbness. She states that now below her knee she is having the throbbing and parasthesias and expresses concern for losing sensation in her entire right leg. She denies any fevers, chills, abdominal pain, n/v/d, bowel or bladder incontinence, left sided parasthesia/numbness. ER course was notable for: (1) CT negative for subluxation or fracture (2) Morphine 4mg IV X2, fentanyl patch (3) Recent Travel: none PAST MEDICAL HISTORY: hypothyroidism, hypoprolactinemia, pituitary adenoma (not seen on recent MRI), AVM between T5-T6 s/p embolization 3 years ago PAST SURGICAL HISTORY: Embolization of spinal AVM (T5-T6) Social History: Smoking: smokes 1/3 ppd Alcohol: denies Drugs: denies Family History: Allergies No Known Allergies Allergy (Verified 05/12/18 21:09) HOME MEDICATIONS: Home Medications Medication Instructions Recorded Levothyroxine [Synthroid -] 275 mcg PO DAILY 07/01/17 REVIEW OF SYSTEMS CONSTITUTIONAL: Absent: fever, chills, diaphoresis, generalized weakness, malaise, loss of appetite, weight change HEENT: Absent: rhinorrhea, nasal congestion, throat pain, throat swelling, difficulty swallowing, mouth swelling, ear pain, eye pain, visual changes CARDIOVASCULAR: Absent: chest pain, syncope, palpitations, irregular heart rate, lightheadedness , peripheral edema RESPIRATORY: Absent: cough, shortness of breath, dyspnea with exertion, orthopnea, wheezing, stridor, hemoptysis GASTROINTESTINAL: Absent: abdominal pain, abdominal distension, nausea, vomiting, diarrhea, constipation, melena, hematochezia GENITOURINARY: Absent: dysuria, frequency, urgency, hesitancy, hematuria, flank pain, genital pain MUSCULOSKELETAL: back pain myalgia, Absent: arthralgia, joint swelling, , neck pain SKIN: Absent: rash, itching, pallor HEMATOLOGIC/IMMUNOLOGIC: Absent: easy bleeding, easy bruising, lymphadenopathy, frequent infections ENDOCRINE: Absent: unexplained weight gain, unexplained weight loss, heat intolerance, cold intolerance NEUROLOGIC: focal weakness or paresthesias, dizziness, unsteady gait Absent: headache, , seizure, mental status changes, bladder or bowel incontinence PSYCHIATRIC: Absent: anxiety, depression, suicidal or homicidal ideation, hallucinations. PHYSICAL EXAMINATION Vital Signs - 24 hr 05/12/18 05/13/18 21:04 05:00 Temperature 98.1 F 98.3 F Pulse Rate 92 H Pulse Rate [ 81 Apical] Respiratory 18 18 Rate Blood Pressure 127/79 Blood Pressure 125/84 [Right Arm] O2 Sat by Pulse 100 100 Oximetry (%) GENERAL: A&O, moderate distress HEAD: Normocephalic, atraumatic EYES: PERRL, EOMI, sclera anicteric EARS, NOSE, THROAT: Ears normal, nares patent, oropharynx clear without exudates. Moist mucous membranes. NECK: supple without lymphadenopathy, normal ROM LUNGS: CTA b/l HEART: Regular rate and rhythm, normal S1 and S2 without murmur ABDOMEN: Soft, nontender, not distended, normoactive bowel sounds MUSCULOSKELETAL: Tenderness to palpation along musculature of right thoracic spine, no spinal point tenderness, Right straight leg raise test limited to 20- 30 degrees due to pain. LOWER EXTREMITIES: 2+ pulses, warm, well-perfused. No calf tenderness. No peripheral edema. Small area of ecchymosis noted on anterior right thigh NEUROLOGICAL: Cranial nerves II-XII intact. Normal speech. Sensation: right proximal leg 1/5, right distal leg 3/5, Left leg 5/5. Muscle strength limited likely due to pain on right leg, 5/5 on left leg Laboratory Results - last 24 hr 05/12/18 05/12/18 05/12/18 00:05 00:20 23:40 WBC 12.6 H RBC 4.46 Hgb 13.3 Hct 40.0 MCV 89.6 MCH 29.9 MCHC 33.3 RDW 13.7 D Plt Count 190 MPV 10.5 Absolute Neuts (auto) 7.8 Neutrophils % 62.2 Lymphocytes % 30.5 D Monocytes % 4.9 Eosinophils % 1.5 Basophils % 0.9 Nucleated RBC % 0 Sodium 141 Potassium 4.7 Chloride 110 H Carbon Dioxide 25 Anion Gap 6 L BUN 16 Creatinine 0.9 Creat Clearance w eGFR > 60 Random Glucose 87 Calcium 8.6 Total Bilirubin 0.3 AST 26 ALT 33 Alkaline Phosphatase 68 Total Protein 6.5 Albumin 3.4 Urine Color Urine Appearance Urine pH Ur Specific [place] Urine Protein Urine Glucose (UA) Urine Ketones Urine Blood Urine Nitrite Urine Bilirubin Urine Urobilinogen Ur Leukocyte Esterase Urine WBC (Auto) Urine RBC (Auto) Ur Epithelial Cells Urine Bacteria Urine Mucus Urine HCG, Qual Negative 05/12/18 23:40 WBC RBC Hgb Hct MCV MCH MCHC RDW Plt Count MPV Absolute Neuts (auto) Neutrophils % Lymphocytes % Monocytes % Eosinophils % Basophils % Nucleated RBC % Sodium Potassium Chloride Carbon Dioxide Anion Gap BUN Creatinine Creat Clearance w eGFR Random Glucose Calcium Total Bilirubin AST ALT Alkaline Phosphatase Total Protein Albumin Urine Color Ltyellow Urine Appearance Clear Urine pH 7.0 Ur Specific [place] 1.023 Urine Protein Negative Urine Glucose (UA) Negative Urine Ketones Negative Urine Blood Negative Urine Nitrite Negative Urine Bilirubin Negative Urine Urobilinogen Negative Ur Leukocyte Esterase Trace Urine WBC (Auto) 2 Urine RBC (Auto) 1 Ur Epithelial Cells Rare Urine Bacteria Rare Urine Mucus Rare Urine HCG, Qual ASSESSMENT/PLAN: 33 yo female with PMH of hypothyroidism, hypoprolactinemia, pituitary adenoma ( not seen on recent MRI), AVM between T5-T6 s/p embolization 3 years ago, placed in for severe back pain on the right side that radiates down her leg into her foot. Pt with difficulty ambulating (though ambulated to bathroom without assist in ED) Intractable Back pain with R Leg Parasthesias -Likely MSK in nature, possibly complication of recent radiofrequency treatment at pain management -No concerning signs for cord compression -CT Thoracic and Lumbar spine noted: no signs of acute fracture or subluxation -Neurology consulted by ED -Pain control and PT eval and will await further recommendations from Neurology -Morphine 2 Q3 for now, can increase or decrease for appropriate pain control -Verify home Percocets and attempt to transition to PO -Cyclobenzaprine 10 mg PO TID -Pt does not tolerate Neurontin, severe nausea as per patient Hypothyroidism -Pt states her synthroid dose was recently increased from 250 mcg daily to 275 mcg daily about 2 months ago -Follows regularly with endocrinology, and expresses that she takes it appropriately on an empty stomach every morning -Continue home Synthroid 275 mcg Hypoprolactinemia -Continue home Cabergoline 0.5 mg PO TID -Pt will need to bring in her own and have verified with pharmacy as our pharmacy does not have -Recent MRI with no sign of pituitary adenoma FEN -Fluids: None -Electrolytes: BMP in AM -Nutrition: Regular Diet Disposition Observation Visit type - Emergency Visit Emergency Visit: Yes ED Registration Date: 05/13/18 Care time: The patient presented to the Emergency Department on the above date and was hospitalized for further evaluation of their emergent condition. - New Patient This patient is new to me today: Yes Date on this admission: 05/13/18 - Critical Care Critical Care patient: No
--- NOTE | 2018-05-13 06:16 | PN ---
Teaching Attending Note Name of Resident: Aubrey Lara ATTENDING PHYSICIAN STATEMENT I saw and evaluated the patient. Chart, data, imaging reviewed. I reviewed the resident's note and discussed the case with the resident. I agree with the resident's findings and plan as documented. SUBJECTIVE: 33 yo female with PMH of hypothyroidism, hypoprolactinemia, pituitary adenoma ( not seen on recent MRI), AVM between T5-T6 s/p embolization 3 years ago, presents for severe back pain on the right side that radiates down her leg into her foot for about 1 day not associated to any recent event. She states that she sees pain management regularly, and that the has regular radiofrequency treatments as needed. Can still ambulate. OBJECTIVE: Last Vital Signs Temp Pulse Resp BP Pulse Ox 98.3 F 81 18 125/84 100 05/13/18 05:00 05/13/18 05:00 05/13/18 05:00 05/13/18 05:00 05/13/18 05:00 General -nad, aaox3 heent - at, nc cv -s1+s2+rrr chest- cta back -some paraspinal tenderness noted abdomen- soft, nt, bs+ ext- right leg weakness with elevation, sensation intact Abnormal Lab Results 05/12/18 05/12/18 00:05 00:20 WBC 12.6 H Chloride 110 H Anion Gap 6 L ASSESSMENT AND PLAN: 33yo woman with severe breakthrough intractable back pain from AV spine malformation. -observation -bed rest -neuro eval -c/w home med regimen of flexeril, tramadol, percocet, fentanyl patch -add morphine IV prn pushes for breakthrough pain -PT evaluation -pain management f/u after d/c for med revision if necessary -heparin sc for dvt ppx
[2018-05-13] MEDS ORDERED: LEVOTHYROXINE NA 100 MCG TABLET (FP) ONE (06:59)
[2018-05-13] MEDS ORDERED: LEVOTHYROXINE NA 75 MCG TABLET (FP) ONE (06:59)
[2018-05-13] MEDS ORDERED: LEVOTHYROXINE NA 200 MCG TABLET PO SCH (07:00)
[2018-05-13] MEDS: LEVOTHYROXINE 200 MCG, LEVOTHYROXINE 75 MCG PO SCH (07:00)
[2018-05-13 07:50] VITALS: BMI 32.8
[2018-05-13] MEDS: diphenhydrAMINE HCL 25 MG CAPSULE (FP) PO PRN ×2 (09:09→15:27)
[2018-05-13] MEDS: ENOXAPARIN NA (PORCINE) 40 MG/0.4 ML DISP.SYRIN SQ SCH (09:10)
[2018-05-13] MEDS: ONDANSETRON 4 MG/2 ML VIAL IVPUSH PRN ×2 (09:37→22:37)
[2018-05-13] MEDS ORDERED: FLU VACCINE QUAD 60 MCG/0.5 ML (MDV 18-19) IM ONE (10:00)
[2018-05-13] MEDS: NICOTINE 14 MG/24 HOURS TOPICAL PATCH TD SCH (12:39)
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
[2018-05-13] MEDS ORDERED: ALPRAZolam 2 MG TABLET PO ONE (16:45)
--- NOTE | 2018-05-13 18:03 | EKG ---
Test Reason : Blood Pressure : / mmHG Vent. Rate : 051 BPM Atrial Rate : 051 BPM P-R Int : 156 ms QRS Dur : 084 ms QT Int : 446 ms P-R-T Axes : 014 058 021 degrees QTc Int : 411 ms SINUS BRADYCARDIA POSSIBLE ANTERIOR INFARCT (CITED ON OR BEFORE 01-JUL-2017) ABNORMAL ECG WHEN COMPARED WITH ECG OF 01-JUL-2017 16:21, VENT. RATE HAS DECREASED BY 33 BPM NONSPECIFIC T WAVE ABNORMALITY NO LONGER EVIDENT IN LATERAL LEADS Confirmed by GERMAINE HARPER MD ([id number]) on 05/13/2018 6:03:31 PM Referred By: Confirmed By:GERMAINE HARPER MD
[2018-05-14] MEDS: MORPHINE SULFATE 2 MG/ML VIAL IVPUSH PRN ×3 (02:04→09:38)
[2018-05-14] MEDS ORDERED: LEVOTHYROXINE NA 75 MCG TABLET (FP) ONE (06:18)
[2018-05-14] MEDS ORDERED: LEVOTHYROXINE NA 100 MCG TABLET (FP) ONE (06:18)
[2018-05-14] MEDS: LEVOTHYROXINE 200 MCG, LEVOTHYROXINE 75 MCG PO SCH (06:26)
[2018-05-14] MEDS: CYCLOBENZAPRINE HCL 10 MG TABLET (FP) PO SCH ×3 (06:27→21:08)
[2018-05-14] MEDS: ONDANSETRON 4 MG/2 ML VIAL IVPUSH PRN ×3 (07:00→21:47)
[2018-05-14] MEDS: diphenhydrAMINE HCL 25 MG CAPSULE (FP) PO PRN ×3 (07:00→21:47)
[2018-05-14 07:53] LABS: HEMATOCRIT 40.9 % (32.4-45.2); HEMOGLOBIN 13.6 GM/dL (10.7-15.3); MCH 29.6 pg (25.7-33.7); MCHC 33.2 g/dl (32.0-36.0); PLATELET COUNT 188 K/MM3 (134-434); RDW 13.7 % (11.6-15.6); WHITE BLOOD COUNT 9.5 K/mm3 (4.0-10.0)
[2018-05-14 09:16] LABS: ALBUMIN 3.3 g/dl (3.4-5.0); ALK PHOS 70 U/L (45-117); ANION GAP 5 MMOL/L (8-16); BILIRUBIN,TOTAL 0.2 mg/dL (0.2-1); BLOOD UREA NITROGEN 11 mg/dL (7-18); CALCIUM 7.9 mg/dL (8.5-10.1); CHLORIDE 107 mmol/L (98-107); CO2 25 mmol/L (21-32); CREATININE 0.7 mg/dL (0.55-1.3); GLUCOSE,RANDOM 81 mg/dL (74-106); MAGNESIUM 2.5 mg/dL (1.8-2.4); PHOSPHOROUS 4.4 mg/dL (2.5-4.9); POTASSIUM 4.5 mmol/L (3.5-5.1); SGOT/AST 10 U/L (15-37); SGPT/ALT 24 U/L (13-61); SODIUM 137 mmol/L (136-145); TOT PROT 6.1 g/dl (6.4-8.2)
[2018-05-14 09:46] LABS: ACANTHOCYTES 0; ANISOCYTOSIS 0; HELMET CELLS 0; HOWELL-JOLLY BODIES 0; MACROCYTOSIS 0; OVALOCYTE 0; PLATELET ESTIMATE NORMAL; ROULEAU 0; SICKELED CELLS 0; TARGET CELLS 0; TEAR DROP CELLS 0; TOXIC GRANULATION 0
[2018-05-14] MEDS: ENOXAPARIN NA (PORCINE) 40 MG/0.4 ML DISP.SYRIN SQ SCH (10:00)
[2018-05-14] MEDS: NICOTINE 14 MG/24 HOURS TOPICAL PATCH TD SCH (10:00)
[2018-05-14] MEDS ORDERED: FLUCONAZOLE 150 MG TABLET PO ONE (10:09)
[2018-05-14] MEDS ORDERED: LORazepam 0.5 MG TABLET PO PRN (10:10)
[2018-05-14] MEDS ORDERED: HYDROCORTISONE 0.5% TOPICAL CREAM 30 GM TUBE TP PRN (10:11)
[2018-05-14] MEDS: LIDOCAINE 5% TOPICAL PATCH TP SCH (11:45)
[2018-05-14] MEDS: morphine SULFATE 4 MG/ML VIAL IVPUSH PRN ×4 (12:39→21:08)
--- NOTE | 2018-05-14 18:16 | PN ---
Physical Exam: SUBJECTIVE: Patient seen and examined at the bedside. reports having pain on back, right side that radiates down to her right thigh Reports intermittent numbness on her right smith. OBJECTIVE: Vital Signs Period Temp Pulse Resp BP Sys/Carney Pulse Ox Last 24 Hr 97.6 F-98.2 F 69-88 16-19 112-132/71-74 100-100 GENERAL: The patient is awake, alert, and fully oriented, in no acute distress. HEAD: Normal with no signs of trauma. EYES: PERRL, extraocular movements intact, sclera anicteric, conjunctiva clear. No ptosis. ENT: Ears normal, nares patent, oropharynx clear without exudates, moist mucous membranes. NECK: Trachea midline, full range of motion, supple. LUNGS: Breath sounds equal, clear to auscultation bilaterally, no wheezes HEART: Regular rate and rhythm ABDOMEN: Soft, nontender, nondistended, normoactive bowel sounds EXTREMITIES: right anterior thigh, small reddened blotchy circular area NEUROLOGICAL: Normal speech, gait not observed. PSYCH: Normal mood, normal affect. Laboratory Results - last 24 hr 05/14/18 05/14/18 07:00 07:00 WBC 9.5 RBC 4.60 Hgb 13.6 Hct 40.9 MCV 89.0 MCH 29.6 MCHC 33.2 RDW 13.7 Plt Count 188 MPV 10.0 Neutrophils % (Manual) 54.4 Band Neutrophils % 1.0 Lymphocytes % (Manual) 36.6 D Monocytes % (Manual) 3 L Eosinophils % (Manual) 1.0 Basophils % (Manual) 0.0 Myelocytes % (Man) 0 Promyelocytes % (Man) 0 Blast Cells % (Manual) 0 Nucleated RBC % 0 Metamyelocytes 0 Hypochromia 0 Toxic Granulation 0 Dohle Bodies 0 Platelet Estimate Normal Polychromasia 0 Poikilocytosis 0 Basophilic Stippling 0 Anisocytosis 0 Microcytosis 0 Macrocytosis 0 Spherocytes 0 Sickle Cells 0 Target Cells 0 Tear Drop Cells 0 Ovalocytes 0 Stomatocytes 0 Helmet Cells 0 Parker-Osgood Bodies 0 [place] Rings 0 Curran Cells 0 Acanthocytes (Spur) 0 Rouleaux 0 Fragmented RBCs 0 Schistocytes 0 Sodium 137 Potassium 4.5 Chloride 107 Carbon Dioxide 25 Anion Gap 5 L BUN 11 Creatinine 0.7 Creat Clearance w eGFR > 60 Random Glucose 81 Calcium 7.9 L Phosphorus 4.4 Magnesium 2.5 H Total Bilirubin 0.2 AST 10 L ALT 24 Alkaline Phosphatase 70 Total Protein 6.1 L Albumin 3.3 L Active Medications Generic Name Dose Route Start Last Admin Trade Name Freq PRN Reason Stop Dose Admin Cyclobenzaprine HCl 10 mg 05/13/18 06:00 05/14/18 14:58 Flexeril - PO 10 mg TID MAGDA Administration Diphenhydramine HCl 25 mg 05/13/18 08:45 05/14/18 14:58 Benadryl - PO 25 mg Q6H PRN Administration FOR ITCHING Enoxaparin Sodium 40 mg 05/13/18 10:00 05/14/18 10:00 Lovenox - SQ 40 mg DAILY MAGDA Administration Hydrocortisone 1 applic 05/14/18 10:11 Hytone 0.5% Cream - TP BID PRN right thigh redness Levothyroxine Sodium 200 mcg/ 275 mcg 05/13/18 07:00 05/14/18 06:26 Levothyroxine Sodium 75 mcg PO 275 mcg DAILY@0700 MAGDA Administration Lidocaine 1 patch 05/14/18 10:15 05/14/18 11:45 Lidoderm Patch - TP 1 patch DAILY MAGDA Administration Lorazepam 0.5 mg 05/14/18 10:10 Ativan - PO DAILY PRN ANXIETY Miscellaneous 1 each 05/12/18 23:30 Duragesic Patch Waste MC PRN PRN PAIN Miscellaneous 1 each 05/14/18 22:00 Lidoderm Patch Removal MC DAILY@2200 MAGDA Morphine Sulfate 4 mg 05/14/18 10:10 05/14/18 17:05 Morphine Sulfate IVPUSH 4 mg Q4H PRN Administration PAIN LEVEL 6-10 Nicotine 14 mg 05/13/18 10:30 05/14/18 10:00 Nicoderm Patch - TD 14 mg DAILY MAGDA Administration Ondansetron HCl 4 mg 05/13/18 09:01 05/14/18 13:47 Zofran Injection IVPUSH 4 mg Q8H PRN Administration NAUSEA ASSESSMENT/PLAN: Patient is a 33 year old female with a significant past medical history of hypothyroidism, hypoprolactinemia, pituitary adenoma, AVM between T5-T6 s/p embolization 3 years ago and asthma. She presents to the ED on 05/13/18 with severe back pain on the right side that radiates down her right leg to her foot. She states that she sees pain management regularly and is treated with Percocet. She states that she sees pain management regularly, and that the has regular radiofrequency treatments, her most recent treatment was 5 days prior. After the treatment, she had severe right leg pain and was unable to ambulate. She denies any trauma, falls, or heavy lifting. She states that now below her knee she is having the parasthesias and expresses concern for losing sensation and not being able to care for herself. She denies any urinary incontinence. Neuro Right sided Back pain with Right Leg pain and parasthesia. Etiology of pain/numbness unclear but reports she had recent radiofrequency treatment at pain management. Thoracic spine CT, Lumbar Spine CT pending read Brain MRI normal Neuro consulted and following Confidential drug utilization report obtained, patient on percocet, monthly prescriptions under prescriber Jose Pang. will transition off morphine back to percocet, when acute pain improves, Cyclobenzaprine 10 mg PO TID per neuro notes/recommendations will try: pramipexole 0.125 mg BID after breakfast and dinner x 4 days then 0.25 BID after food Buproprion XL 150 mg qd x 1 week then 300 mg PO qd. Endocrine: Hypothyroidism On Synthroid 275 mcg Hypoprolactinemia On Cabergoline 0.5 mg PO TID Pulmonary asthma, history. Not in exacerbation. duonebs prn fen tolerating PO monitor electrolytes regular diet Visit type - Emergency Visit Emergency Visit: Yes ED Registration Date: 05/13/18 Care time: The patient presented to the Emergency Department on the above date and was hospitalized for further evaluation of their emergent condition. - New Patient This patient is new to me today: Yes Date on this admission: 05/14/18 - Critical Care Critical Care patient: No - Discharge Referral Referred to [facility] Med P.C.: No
[2018-05-14] MEDS: PRAMIPEXOLE DIHYDROCHLORIDE 0.125 MG TABLET PO SCH (20:43)
[2018-05-14] MEDS: DOCUSATE SODIUM 100 MG CAPSULE (FP) PO SCH (21:08)
[2018-05-14] MEDS: LIDOCAINE PATCH REMOVAL MC SCH (21:12)
[2018-05-15] MEDS: morphine SULFATE 4 MG/ML VIAL IVPUSH PRN ×6 (01:36→22:03)
[2018-05-15] MEDS ORDERED: LEVOTHYROXINE NA 75 MCG TABLET (FP) ONE ×2 (05:10→05:11)
[2018-05-15] MEDS ORDERED: LEVOTHYROXINE NA 100 MCG TABLET (FP) ONE ×2 (05:10→05:11)
[2018-05-15] MEDS: CYCLOBENZAPRINE HCL 10 MG TABLET (FP) PO SCH ×3 (06:02→22:01)
[2018-05-15] MEDS: DOCUSATE SODIUM 100 MG CAPSULE (FP) PO SCH ×3 (06:02→22:03)
[2018-05-15] MEDS: LEVOTHYROXINE 200 MCG, LEVOTHYROXINE 75 MCG PO SCH (06:02)
[2018-05-15] MEDS: ONDANSETRON 4 MG/2 ML VIAL IVPUSH PRN ×3 (06:16→22:02)
[2018-05-15] MEDS: diphenhydrAMINE HCL 25 MG CAPSULE (FP) PO PRN ×3 (06:16→17:50)
[2018-05-15 09:02] LABS: BASO % 0.4 % (0-2.0); EOS % 5.5 % (0-4.5); HEMATOCRIT 44.4 % (32.4-45.2); HEMOGLOBIN 14.7 GM/dL (10.7-15.3); MCH 29.7 pg (25.7-33.7); MEAN CELL VOLUME 89.9 fl (80-96); MONO % 5.9 % (3.8-10.2); NEUT % 57.2 % (42.8-82.8); PLATELET COUNT 207 K/MM3 (134-434); RBC 4.94 M/mm3 (3.60-5.2); RDW 13.9 % (11.6-15.6); WHITE BLOOD COUNT 9.6 K/mm3 (4.0-10.0)
[2018-05-15 09:41] LABS: ALBUMIN 3.6 g/dl (3.4-5.0); ALK PHOS 75 U/L (45-117); ANION GAP 7 MMOL/L (8-16); BILIRUBIN,TOTAL 0.4 mg/dL (0.2-1); BLOOD UREA NITROGEN 12 mg/dL (7-18); CALCIUM 8.5 mg/dL (8.5-10.1); CHLORIDE 103 mmol/L (98-107); CO2 28 mmol/L (21-32); CREATININE 0.8 mg/dL (0.55-1.3); GLUCOSE,RANDOM 90 mg/dL (74-106); MAGNESIUM 2.5 mg/dL (1.8-2.4); POTASSIUM 4.6 mmol/L (3.5-5.1); SGOT/AST 6 U/L (15-37); SGPT/ALT 23 U/L (13-61); SODIUM 138 mmol/L (136-145); TOT PROT 6.7 g/dl (6.4-8.2)
[2018-05-15] MEDS: NICOTINE 14 MG/24 HOURS TOPICAL PATCH TD SCH (10:07)
[2018-05-15] MEDS: PRAMIPEXOLE DIHYDROCHLORIDE 0.125 MG TABLET PO SCH ×2 (10:07→17:50)
[2018-05-15] MEDS: LIDOCAINE 5% TOPICAL PATCH TP SCH (10:09)
[2018-05-15] MEDS: POLYETHYLENE GLYCOL 3350 119 GM BTL PO SCH (10:09)
[2018-05-15] MEDS: ENOXAPARIN NA (PORCINE) 40 MG/0.4 ML DISP.SYRIN SQ SCH (10:09)
[2018-05-15] MEDS: TIOTROPIUM BROMIDE 2.5 MCG (SPIRIVA) RESPIMAT INHALER IH SCH (12:34)
[2018-05-15] MEDS ORDERED: ACETAMINOPHEN 500 MG TABLET (FP) PO ONE (20:07)
[2018-05-15] MEDS ORDERED: NICOTINE 14 MG/24 HOURS TOPICAL PATCH TD ONE (20:08)
--- NOTE | 2018-05-15 20:09 | PN ---
Physical Exam: SUBJECTIVE: Patient seen and examined at the bedside. had some bleeding oozing from right ear. small scab noted inside ear canal. pressure applied with gauze and stopped bleeding. discontinued lovenox. monitor. if re-bleeds, will need ENT to evaluate. Vaginal itching, discharge, ordered Monistat. OBJECTIVE: Awaiting MRIs Vital Signs Period Temp Pulse Resp BP Sys/Carney Pulse Ox Last 24 Hr 97.7 F-98.5 F 82-120 18-20 97-115/50-72 95-100 GENERAL: The patient is awake, alert, and fully oriented, in no acute distress. HEAD: Normal with no signs of trauma. EYES: PERRL, extraocular movements intact, sclera anicteric, conjunctiva clear. No ptosis. ENT: Ears normal, nares patent, oropharynx clear without exudates, moist mucous membranes. NECK: Trachea midline, full range of motion, supple. LUNGS: Breath sounds equal, clear to auscultation bilaterally, no wheezes HEART: Regular rate and rhythm ABDOMEN: Soft, nontender, nondistended, normoactive bowel sounds EXTREMITIES: right anterior thigh, small reddened blotchy circular area NEUROLOGICAL: Normal speech, gait not observed. PSYCH: Normal mood, normal affect Laboratory Results - last 24 hr 05/15/18 05/15/18 08:35 08:35 WBC 9.6 RBC 4.94 Hgb 14.7 Hct 44.4 MCV 89.9 MCH 29.7 MCHC 33.0 RDW 13.9 Plt Count 207 MPV 10.0 Absolute Neuts (auto) 5.5 Neutrophils % 57.2 Lymphocytes % 31.0 Monocytes % 5.9 Eosinophils % 5.5 H D Basophils % 0.4 Nucleated RBC % 0 Sodium 138 Potassium 4.6 Chloride 103 Carbon Dioxide 28 Anion Gap 7 L BUN 12 Creatinine 0.8 Creat Clearance w eGFR > 60 Random Glucose 90 Calcium 8.5 Magnesium 2.5 H Total Bilirubin 0.4 AST 6 L ALT 23 Alkaline Phosphatase 75 Total Protein 6.7 Albumin 3.6 Active Medications Generic Name Dose Route Start Last Admin Trade Name Freq PRN Reason Stop Dose Admin Acetaminophen 1,000 mg 05/15/18 20:07 Tylenol - PO 05/15/18 20:08 ONCE ONE Albuterol/Ipratropium 1 amp 05/14/18 18:36 Duoneb - NEB Q6H PRN SHORTNESS OF BREATH Bupropion HCl 150 mg 05/15/18 10:00 05/15/18 10:09 Wellbutrin Xl - PO 150 mg DAILY MAGDA Administration Cyclobenzaprine HCl 10 mg 05/13/18 06:00 05/15/18 13:29 Flexeril - PO 10 mg TID MAGDA Administration Diphenhydramine HCl 25 mg 05/13/18 08:45 05/15/18 17:50 Benadryl - PO 25 mg Q6H PRN Administration FOR ITCHING Docusate Sodium 100 mg 05/14/18 22:00 05/15/18 13:29 Colace - PO 100 mg TID MAGDA Administration Hydrocortisone 1 applic 05/14/18 10:11 05/15/18 12:33 Hytone 0.5% Cream - TP 1 applic BID PRN Administration right thigh redness Levothyroxine Sodium 200 mcg/ 275 mcg 05/13/18 07:00 05/15/18 06:02 Levothyroxine Sodium 75 mcg PO 275 mcg DAILY@0700 MAGDA Administration Lidocaine 1 patch 05/14/18 10:15 05/15/18 10:09 Lidoderm Patch - TP 1 patch DAILY MAGDA Administration Lorazepam 0.5 mg 05/15/18 13:07 Ativan - PO BID MAGDA Miconazole Nitrate 1 applic 05/15/18 22:00 Monistat Topical Cream - TP BID MAGDA Miscellaneous 1 each 05/12/18 23:30 Duragesic Patch Waste PRN PRN PAIN Miscellaneous 1 each 05/14/18 22:00 05/14/18 21:12 Lidoderm Patch Removal MC 1 each DAILY@2200 MAGDA Administration Morphine Sulfate 4 mg 05/14/18 10:10 05/15/18 17:50 Morphine Sulfate IVPUSH 4 mg Q4H PRN Administration PAIN LEVEL 6-10 Nicotine 14 mg 05/13/18 10:30 05/15/18 10:07 Nicoderm Patch - TD 14 mg DAILY MAGDA Administration Nicotine 14 mg 05/16/18 20:08 Nicoderm Patch - TD 05/16/18 20:09 ONCE ONE Ondansetron HCl 4 mg 05/13/18 09:01 05/15/18 14:00 Zofran Injection IVPUSH 4 mg Q8H PRN Administration NAUSEA Polyethylene Glycol 17 gm 05/15/18 10:00 05/15/18 10:09 Miralax (For Daily Use) - PO Not Given DAILY MAGDA Pramipexole Dihydrochloride 0.125 mg 05/14/18 18:30 05/15/18 17:50 Mirapex - PO 05/18/18 09:01 0.125 mg BIDPC MAGDA Administration Tiotropium [place] 2 puff 05/15/18 12:00 05/15/18 12:34 Spiriva Respimat IH 2 puff DAILY MAGDA Administration ASSESSMENT/PLAN: Patient is a 33 year old female with a significant past medical history of hypothyroidism, hypoprolactinemia, pituitary adenoma, AVM between T5-T6 s/p embolization 3 years ago and asthma. She presents to the ED on 05/13/18 with severe back pain on the right side that radiates down her right leg to her foot. She states that she sees pain management regularly and is treated with Percocet. She reports regular radiofrequency treatments, her most recent treatment was 5 days prior to admission. After the treatment, she had severe right leg pain and was unable to ambulate, prompting an ER visit. She denies any trauma, falls, or heavy lifting. She states that now below her knee she is having the parasthesias and expresses concern for losing sensation and not being able to care for herself. She denies any urinary incontinence. Neuro Right sided Back pain with Right Leg pain and parasthesia. Etiology of pain/numbness unclear but reports she had recent radiofrequency treatment at pain management. Thoracic spine CT, Lumbar Spine CT reviewed. Brain MRI normal. lumbar/ thoracic MRI pending. Physical therapy ordered Confidential drug utilization report obtained, patient on percocet, monthly prescriptions under prescriber Jose Pang. will transition off morphine back to percocet, when acute pain improves, Cyclobenzaprine 10 mg PO TID per neuro notes/recommendations will try: pramipexole 0.125 mg BID after breakfast and dinner x 4 days then 0.25 BID after food Buproprion XL 150 mg qd x 1 week then 300 mg PO qd. Endocrine: Hypothyroidism On Synthroid 275 mcg Hypoprolactinemia On Cabergoline 0.5 mg PO TID, patient to bring in her home meds. ENT: Right inner canal ear bleed. superficial. Small scab noted inside ear on inspection. Lovenox stopped. ENT consult if re-bleeding occurs. BREAD AND PASTRY BAKER Vaginal itchiness/discharge. started on Monistat. Pulmonary asthma, history. Not in exacerbation. duonebs prn fen tolerating PO monitor electrolytes regular diet Visit type - Emergency Visit Emergency Visit: Yes ED Registration Date: 05/15/18 Care time: The patient presented to the Emergency Department on the above date and was hospitalized for further evaluation of their emergent condition. - New Patient This patient is new to me today: No - Critical Care Critical Care patient: No - Discharge Referral Referred to [facility] Med P.C.: No
[2018-05-15] MEDS: LORazepam 0.5 MG TABLET PO SCH (22:01)
[2018-05-15] MEDS: MICONAZOLE NITRATE 14 GM/TUBE TUBE TP SCH (22:02)
[2018-05-15] MEDS: LIDOCAINE PATCH REMOVAL MC SCH ×2 (22:04→22:11)
[2018-05-16] MEDS: diphenhydrAMINE HCL 25 MG CAPSULE (FP) PO PRN ×3 (00:01→15:21)
[2018-05-16] MEDS: ACETAMINOPHEN 325 MG TABLET (FP) PO PRN ×2 (02:07→22:09)
[2018-05-16] MEDS ORDERED: MELATONIN 5 MG TABLETS PO PRN (02:18)
[2018-05-16] MEDS: morphine SULFATE 4 MG/ML VIAL IVPUSH PRN ×6 (02:37→23:02)
[2018-05-16] MEDS ORDERED: LEVOTHYROXINE NA 75 MCG TABLET (FP) ONE (06:17)
[2018-05-16] MEDS ORDERED: LEVOTHYROXINE NA 100 MCG TABLET (FP) ONE (06:17)
[2018-05-16] MEDS: CYCLOBENZAPRINE HCL 10 MG TABLET (FP) PO SCH ×2 (06:51→14:22)
[2018-05-16] MEDS: LEVOTHYROXINE 200 MCG, LEVOTHYROXINE 75 MCG PO SCH (06:51)
[2018-05-16] MEDS: DOCUSATE SODIUM 100 MG CAPSULE (FP) PO SCH ×3 (06:51→22:11)
[2018-05-16] MEDS: ONDANSETRON 4 MG/2 ML VIAL IVPUSH PRN ×3 (07:04→23:02)
[2018-05-16] MEDS ORDERED: PT OWN MED DRAWER 7, Y5N ONE ×3 (09:03→21:59)
[2018-05-16] MEDS: PRAMIPEXOLE DIHYDROCHLORIDE 0.125 MG TABLET PO SCH ×2 (09:11→18:57)
[2018-05-16] MEDS: LORazepam 0.5 MG TABLET PO SCH ×2 (09:11→22:10)
[2018-05-16] MEDS: TIOTROPIUM BROMIDE 2.5 MCG (SPIRIVA) RESPIMAT INHALER IH SCH (09:12)
[2018-05-16] MEDS: LIDOCAINE 5% TOPICAL PATCH TP SCH (09:12)
[2018-05-16] MEDS: POLYETHYLENE GLYCOL 3350 119 GM BTL PO SCH (09:12)
[2018-05-16] MEDS: MICONAZOLE NITRATE 14 GM/TUBE TUBE TP SCH ×2 (09:13→22:12)
[2018-05-16] MEDS: NICOTINE 14 MG/24 HOURS TOPICAL PATCH TD SCH (09:13)
--- NOTE | 2018-05-16 09:27 | PN ---
Physical Exam: SUBJECTIVE: Patient seen and examined. She reports having intermittent sharp pain in her low back radiating down her right leg, and continuous throbbing pain and numbness. She notes two lesions on her anterior right thigh which were initially itchy but now painful to touch. OBJECTIVE: Vital Signs Period Temp Pulse Resp BP Sys/Carney Pulse Ox Last 24 Hr 97.7 F-98.5 F 85-120 18-20 97-147/50-81 97 GENERAL: The patient is awake, alert, and fully oriented, in no acute distress. LUNGS: Breath sounds equal, clear to auscultation bilaterally, no wheezes, no crackles, no accessory muscle use. HEART: Regular rate and rhythm, S1, S2 without murmur, rub or gallop. ABDOMEN: Obese, soft, nontender, nondistended, normoactive bowel sounds, no guarding, no rebound, no hepatosplenomegaly, no masses. EXTREMITIES: 2+ pulses, warm, well-perfused, no edema. SKIN: Warm, dry, normal turgor. Two non-tender, round, erythematous/ecchymotic, indurated wheal-like lesions on anterior right thigh Laboratory Results - last 24 hr 05/15/18 08:35 Sodium 138 Potassium 4.6 Chloride 103 Carbon Dioxide 28 Anion Gap 7 L BUN 12 Creatinine 0.8 Creat Clearance w eGFR > 60 Random Glucose 90 Calcium 8.5 Magnesium 2.5 H Total Bilirubin 0.4 AST 6 L ALT 23 Alkaline Phosphatase 75 Total Protein 6.7 Albumin 3.6 Active Medications Generic Name Dose Route Start Last Admin Trade Name Freq PRN Reason Stop Dose Admin Acetaminophen 650 mg 05/15/18 23:33 05/16/18 02:07 Tylenol - PO 650 mg Q6H PRN Administration HEADACHE Albuterol/Ipratropium 1 amp 05/14/18 18:36 Duoneb - NEB Q6H PRN SHORTNESS OF BREATH Bupropion HCl 150 mg 05/15/18 10:00 05/16/18 09:11 Wellbutrin Xl - PO 150 mg DAILY MAGDA Administration Cyclobenzaprine HCl 10 mg 05/13/18 06:00 05/16/18 06:51 Flexeril - PO 10 mg TID MAGDA Administration Diphenhydramine HCl 25 mg 05/13/18 08:45 05/16/18 09:21 Benadryl - PO 25 mg Q6H PRN Administration FOR ITCHING Docusate Sodium 100 mg 05/14/18 22:00 05/16/18 06:51 Colace - PO Not Given TID [facility] Hydrocortisone 1 applic 05/14/18 10:11 05/15/18 12:33 Hytone 0.5% Cream - TP 1 applic BID PRN Administration right thigh redness Levothyroxine Sodium 200 mcg/ 275 mcg 05/13/18 07:00 05/16/18 06:51 Levothyroxine Sodium 75 mcg PO 275 mcg DAILY@0700 MAGDA Administration Lidocaine 1 patch 05/14/18 10:15 05/16/18 09:12 Lidoderm Patch - TP 1 patch DAILY MAGDA Administration Lorazepam 0.5 mg 05/15/18 13:07 05/16/18 09:11 Ativan - PO 0.5 mg BID MAGDA Administration Melatonin 5 mg 05/16/18 02:18 05/16/18 02:37 Melatonin PO 5 mg HS PRN Administration INSOMNIA Miconazole Nitrate 1 applic 05/15/18 22:00 05/16/18 09:13 Monistat Topical Cream - TP 1 applic BID MAGDA Administration Miscellaneous 1 each 05/14/18 22:00 05/15/18 22:11 Lidoderm Patch Removal MC Not Given DAILY@2200 [facility] Morphine Sulfate 4 mg 05/14/18 10:10 05/16/18 07:00 Morphine Sulfate IVPUSH 4 mg Q4H PRN Administration PAIN LEVEL 6-10 Nicotine 14 mg 05/13/18 10:30 05/16/18 09:13 Nicoderm Patch - TD 14 mg DAILY MAGDA Administration Ondansetron HCl 4 mg 05/13/18 09:01 05/16/18 07:04 Zofran Injection IVPUSH 4 mg Q8H PRN Administration NAUSEA Polyethylene Glycol 17 gm 05/15/18 10:00 05/16/18 09:12 Miralax (For Daily Use) - PO Not Given DAILY [facility] Pramipexole Dihydrochloride 0.125 mg 05/14/18 18:30 05/16/18 09:11 Mirapex - PO 05/18/18 09:01 0.125 mg BIDPC MAGDA Administration Tiotropium [place] 2 puff 05/15/18 12:00 05/16/18 09:12 Spiriva Respimat IH 2 puff DAILY MAGDA Administration ASSESSMENT/PLAN: This is a 33 year old woman with a history of hypothyroidism, hyperprolactinemia , pituitary adenoma, AVM between T5-T6 s/p embolization, asthma who presented to the ED with severe back pain radiating down her right leg. 1. Possible lumbosacral radiculopathy - Pain control - Continue Flexeril - Physical therapy - Awaiting MRI of T-spine, L-spine 2. Possible hives, right thigh - Continue Benadryl as needed for itching - Change hydrocortisone cream to 1% bid 3. Restless leg syndrome - Continue Mirapex 4. Depression, post- - Continue Wellbutrin 150 mg daily (day 2 of 7) then 300 mg daily 5. Hypothyroidism - Continue Synthroid 6. Hyperprolactinemia - Coninue cabergoline 7. Asthma - Stable - Continue Spiriva 8. Nicotine dependence - Continue nicotine patch Visit type - Emergency Visit Emergency Visit: Yes ED Registration Date: 05/15/18 Care time: The patient presented to the Emergency Department on the above date and was hospitalized for further evaluation of their emergent condition. - New Patient This patient is new to me today: Yes Date on this admission: 05/16/18 - Critical Care Critical Care patient: No - Discharge Referral Referred to [facility] Med P.C.: No
[2018-05-16] MEDS ORDERED: ALPRAZolam 0.25 MG TABLET PO ONE ×2 (14:19→20:00)
[2018-05-16] MEDS: ALBUTEROL SO4 2.5/IPRATROPIUM 0.5 INH SOL 3 ML VIAL.NEB. NEB PRN (19:41)
[2018-05-16] MEDS ORDERED: NICOTINE 14 MG/24 HOURS TOPICAL PATCH TD ONE (20:08)
[2018-05-16] MEDS: HYDROCORTISONE 1% TOPICAL CREAM 30 GM TUBE TP SCH (22:00)
[2018-05-16] MEDS: PRAMIPEXOLE DIHYDROCHLORIDE 0.25 MG TABLET PO SCH (22:10)
[2018-05-16] MEDS: LIDOCAINE PATCH REMOVAL MC SCH (22:12)
[2018-05-17] MEDS ORDERED: LEVOTHYROXINE NA 100 MCG TABLET (FP) ONE (05:10)
[2018-05-17] MEDS ORDERED: LEVOTHYROXINE NA 75 MCG TABLET (FP) ONE (05:10)
[2018-05-17] MEDS: morphine SULFATE 4 MG/ML VIAL IVPUSH PRN ×2 (05:13→09:36)
[2018-05-17] MEDS: DOCUSATE SODIUM 100 MG CAPSULE (FP) PO SCH ×3 (05:14→22:24)
[2018-05-17] MEDS: PRAMIPEXOLE DIHYDROCHLORIDE 0.25 MG TABLET PO SCH ×3 (05:14→22:24)
[2018-05-17] MEDS: LEVOTHYROXINE 200 MCG, LEVOTHYROXINE 75 MCG PO SCH (06:49)
[2018-05-17] MEDS: ALBUTEROL SO4 2.5/IPRATROPIUM 0.5 INH SOL 3 ML VIAL.NEB. NEB PRN (07:39)
[2018-05-17] MEDS: LORazepam 0.5 MG TABLET PO SCH ×2 (09:36→22:24)
[2018-05-17] MEDS: LIDOCAINE 5% TOPICAL PATCH TP SCH (09:53)
[2018-05-17] MEDS: ONDANSETRON 4 MG/2 ML VIAL IVPUSH PRN (09:53)
[2018-05-17] MEDS: diphenhydrAMINE HCL 25 MG CAPSULE (FP) PO PRN ×2 (09:53→18:16)
[2018-05-17] MEDS: HYDROCORTISONE 1% TOPICAL CREAM 30 GM TUBE TP SCH ×2 (09:54→22:25)
[2018-05-17] MEDS: POLYETHYLENE GLYCOL 3350 119 GM BTL PO SCH (09:54)
[2018-05-17] MEDS: MICONAZOLE NITRATE 14 GM/TUBE TUBE TP SCH ×2 (09:55→22:27)
[2018-05-17] MEDS: NICOTINE 14 MG/24 HOURS TOPICAL PATCH TD SCH (09:55)
[2018-05-17] MEDS ORDERED: PT OWN MED DRAWER 7, Y5N ONE ×2 (10:06→13:57)
[2018-05-17] MEDS: TIOTROPIUM BROMIDE 2.5 MCG (SPIRIVA) RESPIMAT INHALER IH SCH (10:09)
--- NOTE | 2018-05-17 11:43 | DS ---
Physical Exam: SUBJECTIVE: Patient seen and examined OBJECTIVE: Vital Signs Period Temp Pulse Resp BP Sys/Carney Pulse Ox Last 24 Hr 97.9 F-98.5 F 79-110 18-20 101-127/63-76 97 PHYSICAL EXAM GENERAL: The patient is awake, alert, and fully oriented, in no acute distress. HEAD: Normal with no signs of trauma. EYES: PERRL, extraocular movements intact, sclera anicteric, conjunctiva clear. ENT: Ears normal, nares patent, oropharynx clear without exudates, moist mucous membranes. NECK: Trachea midline, full range of motion, supple. LUNGS: Breath sounds equal, clear to auscultation bilaterally, no wheezes, no crackles, no accessory muscle use. HEART: Regular rate and rhythm, S1, S2 without murmur, rub or gallop. ABDOMEN: Soft, nontender, nondistended, normoactive bowel sounds, no guarding, no rebound, no hepatosplenomegaly, no masses. EXTREMITIES: 2+ pulses, warm, well-perfused, no edema. NEUROLOGICAL: Cranial nerves II through XII grossly intact. Normal speech, gait not observed. PSYCH: Normal mood, normal affect. SKIN: Warm, dry, normal turgor, no rashes or lesions noted. LABS HOSPITAL COURSE: Date of Admission:05/15/18 Date of Discharge: 05/17/18 Minutes to complete discharge: 35 Discharge Summary Reason For Visit: BACK PAIN Current Active Problems Back pain (Acute) Condition: Improved - Instructions Diet, Activity, Other Instructions: During your hospital stay imaging showed you have a lipoma on your right thigh. You may want to seek the opinion of a surgeon about removal of the lipoma. Dr. Oliver Ayon is a surgeon and his contact information is enclosed in this discharge packet. PLease return to the emergency department for any new or worsening symptoms. Referrals: Oliver Ayon MD [Staff Physician] - Marlene Martin MD [Primary Care Provider] - Disposition: HOME - Home Medications Comprehensive Discharge Medication List: Ambulatory Orders Levothyroxine [Synthroid -] 275 mcg PO DAILY 07/01/17 Cabergoline [Dostinex -] 0.5 mg PO Q2D 05/13/18 Tiotropium [place] [Spiriva Respimat] IH DAILY 05/13/18 Ventolin HFA Inhaler - IH PRN PRN 05/13/18 Hydrocortisone 1% Cream [Hytone 1% Cream -] 1 applic TP BID tube 05/17/18 This patient is new to me today: Yes Date on this admission: 05/17/18 Emergency Visit: Yes ED Registration Date: 05/15/18 Care time: The patient presented to the Emergency Department on the above date and was hospitalized for further evaluation of their emergent condition. Critical Care patient: No - Discharge Referral Referred to [facility] Med P.C.: No
[2018-05-17] MEDS: oxyCODONE HCL 5 MG TABLET PO PRN ×3 (14:02→22:29)
[2018-05-17] MEDS: GABAPENTIN 100 MG CAPSULE (FP) PO SCH ×2 (17:03→22:24)
[2018-05-17 18:43] VITALS: BP 98/53; PULSE 104; TEMP 98.5
[2018-05-17] MEDS: LIDOCAINE PATCH REMOVAL MC SCH (22:26)
== END 2018-05-18 03:57 | disposition home or self-care (01) | DRG 347 ==
LOC: JERFT 21:02 → JERBED 05-13 04:35 → J8W 05-13 05:55 → OBSVTOIN 05-15 12:33
PROVIDERS: ADMIT Internal Medicine; ATTEND Nurse Practitioner Acute Care
DX: M54.17 Radiculopathy, lumbosacral region (principal); E03.9 Hypothyroidism, unspecified; D64.9 Anemia, unspecified; M48.00 Spinal stenosis, site unspecified; G25.81 Restless legs syndrome; D35.2 Benign neoplasm of pituitary gland; H83.8X1 Other specified diseases of right inner ear; J45.909 Unspecified asthma, uncomplicated; L29.2 Pruritus vulvae; L50.9 Urticaria, unspecified; F17.210 Nicotine dependence, cigarettes, uncomplicated; D17.79 Benign lipomatous neoplasm of other sites
CPT/HCPCS: 36415; 70551-TC; 72129-TC; 72132-TC; 72157-TC; 72158-TC; 76882-TC-RT-FY; 80048; 80053; 81003; 81015; 83735; 84100; 84703; 85025; 85027; 90688; 93005; 93010; 94640; 97116-GP; 97161-GP; 99282-25; G0008; G0378; J0131

== ENCOUNTER 2019-02-25 12:52 | Emergency (ER) | payer OTHER ==
[2019-02-25 13:01] VITALS: BP 105/67; PULSE 79; TEMP 98.2; BMI 31.8
--- NOTE | 2019-02-25 13:48 | PDOC ---
History of Present Illness - General Chief Complaint: Eye Problem Stated Complaint: RT EYE SWELLING Time Seen by Provider: 02/25/19 13:04 History Source: Patient Exam Limitations: No Limitations Past History - Past Medical History Allergies/Adverse Reactions: Allergies Allergy/AdvReac Type Severity Reaction Status Date / Time No Known Allergies Allergy Verified 02/25/19 13:01 Home Medications: Ambulatory Orders Levothyroxine [Synthroid -] 275 mcg PO DAILY 07/01/17 Cabergoline [Dostinex -] 0.5 mg PO Q2D 05/13/18 Tiotropium [place] [Spiriva Respimat] IH DAILY 05/13/18 Ventolin HFA Inhaler - IH PRN PRN 05/13/18 Hydrocortisone 1% Cream [Hytone 1% Cream -] 1 applic TP BID tube 05/17/18 Prednisolone 1% Ophthalmic [Pred Forte 1% -] 1 drop OD QID #1 bottle 02/25/19 Anemia: Yes Asthma: Yes (LAST ATTACK MONTHS AGO) Cancer: No Cardiac Disorders: No COPD: No Diabetes: No HTN: No Liver Disease: No Seizures: No Thyroid Disease: Yes (HYPO) Other medical history: pituitary ademoma - Surgical History Abdominal Surgery: Yes (LAP adhesions) Appendectomy: Yes Cardiac Surgery: Yes - Immunization History Immunization Up to Date: Yes - Suicide/Smoking/Psychosocial Hx Smoking Status: Yes Smoking History: Never smoked Have you smoked in the past 12 months: No Number of Cigarettes Smoked Daily: 7 If you are a former smoker, when did you quit?: 2013 Information on smoking cessation initiated: No Hx Alcohol Use: No Drug/Substance Use Hx: No Substance Use Type: None Hx Substance Use Treatment: No *Physical Exam - Vital Signs Last Vital Signs Temp Pulse Resp BP Pulse Ox 98.2 F 79 18 105/67 99 02/25/19 12:54 02/25/19 12:54 02/25/19 12:54 02/25/19 12:54 02/25/19 12:54 - Physical Exam General Appearance: No: Apparent Distress HEENT: positive: EOMI, MAURY, Other (R eye not injected, FROM of R eye, small lesion underneath R eyelid (along lateral aspect; not tender to touch), no dye uptake, no corneal abrasion, vision 20/100 R eye, 20/25 L eye, no fixed, midposition pupil noted, no hazy cornea noted) Neurologic: positive: Alert, Normal Mood/Affect Medical Decision Making - Medical Decision Making 34 y/o F hx of pituitary adenoma (on meds, no surgery done), hyperprolactinoma, spinal AVM s/p surgery presents with R eye pain, photophobia, blurred vision, tearing x 1.5 weeks. Blurred vision started occurring around 3 days ago. Saw her PCP last week who told her it was pink eye and placed her on Tobramycin eye drops and Bacitracin ointment which has not helped. Was on eye meds x 1 week. Went to [facility] yesterday and given Toradol, but states there was no full eye evaluation done. Denies fever, n/v, eye trauma. Denies prior eye surgeries. Does not wear contacts. Wears reading glasses. Likely iritis; no current suspicion for glaucoma Unable to do slit lamp exam as machine is broken and was sent for repair D/W eye doctor, Dr. Sandoval, who advised to start on Prednisone eye drops and have patient f/u in her clinic tomorrow at 9 AM 02/25/19 13:58 *DC/Admit/Observation/Transfer Diagnosis at time of Disposition: Iritis - Discharge Dispostion Disposition: HOME Condition at time of disposition: Stable Decision to Admit order: No - Prescriptions Prescriptions: Prednisolone 1% Ophthalmic [Pred Forte 1% -] 1 drop OD QID #1 bottle - Referrals Referrals: Marga Herrera MD [Staff Physician] - 02/26/19 9:00 am - Patient Instructions Printed Discharge Instructions: DI for Eye Pain Additional Instructions: Thank you for choosing [facility]. It was a pleasure taking care of you. Please take the prescribed eye drops Please follow-up with eye doctor tomorrow at 9 AM at: [address] [place] [address] Return to the Emergency Department if your symptoms worsen or persist, you have vision loss, vomiting, severe headache or other concerning symptoms. - Post Discharge Activity
== END 2019-02-25 14:35 | disposition home or self-care (01) ==
LOC: JERFT 12:52
DX: H20.9 Unspecified iridocyclitis (principal); E03.9 Hypothyroidism, unspecified; D35.2 Benign neoplasm of pituitary gland; Z87.09 Personal history of other diseases of the respiratory system
CPT/HCPCS: 99281-25